=== PATIENT | male | born 1960 | race African-American/Black ===

== ENCOUNTER 2016-09-15 10:22 | Inpatient (IN) | payer MEDICARE, OTHER ==
[2016-09-15] MEDS: LORazepam 2 MG/ML SYRINGE IV PRN (12:51)
--- NOTE | 2016-09-15 12:51 | P.HPIM ---
History of Present Illness H&P Date: 09/15/16 Chief Complaint: Uncontrolled tremors This is a very unfortunate 56-year-old gentleman with past medical history significant for advanced Niagara's disease who is a chronically a resident at [facility] and has been having worsening Mora and tremors over the past several weeks. His is unassigned dose has been increased recently to 25 mg twice a day. Patient also get Klonopin 2 mg every 6 hours scheduled and 1 mg every 8 hours as needed. For the past couple of days he has been having worsening Mora and today when I was in to see him at the detention he appears very uncomfortable. He is also having episodes of diffuse sweating when the intensity of the tremor increase. Most of the time his symptoms is been responsive to Klonopin but yesterday and today patient was very uncomfortable. I decided to admit him directly to the hospital for symptoms control and neurology consultation. Of note, patient is chronically nonverbal. He is also having problems with dysphagia chronically and he had a PEG tube inserted approximately a year ago. Review of Systems Unable to review other systems given his clinical condition Past Medical History Past Medical History: Neurologic Disorder Additional Past Medical History / Comment(s): Huntingtons, Dementia, Dysphagia History of Any Multi-Drug Resistant Organisms: None Reported Past Surgical History: Unable to Obtain Past Anesthesia/Blood Transfusion Reactions: Unable to Obtain Past Psychological History: Unable to Obtain Smoking Status: Unknown if ever smoked Past Alcohol Use History: Unable to Obtain Past Drug Use History: Unable to Obtain Medications and Allergies Home Medications Medication Instructions Recorded Confirmed Type Baclofen [Lioresal] 10 mg PO Q6HR 12/13/15 12/15/15 History Cyanocobalamin [Vitamin B-12 1,000 mcg IM Q30D 12/13/15 12/15/15 History Injection] Polyethylene Glycol 3350 [Miralax] 17 gm PO HS 12/13/15 12/15/15 History Tetrabenazine [Xenazine] 12.5 mg PO BID 12/13/15 12/15/15 History tiZANidine [Zanaflex] 2 mg PO Q6HR 12/13/15 12/15/15 History lamoTRIgine [LaMICtal Odt] 100 mg PO DAILY 12/15/15 12/15/15 History Allergies Allergy/AdvReac Type Severity Reaction Status Date / Time No Known Allergies Allergy Verified 12/15/15 09:38 Physical Exam Vitals: Vital Signs Pulse Resp 09/15/16 12:15 98 20 Intake and Output 09/14/16 09/15/16 09/15/16 22:59 06:59 14:59 Other: Weight 65.45 kg Patient Weight 09/16/16 06:59 Weight 65.45 kg General: The patient is awake and alert, he is nonverbal, he is having episodes of generalized tremor that at times appears severe Eye: extra-ocular movements are intact Cardiovascular: Normal S1-S2, no S3-S4, no murmurs. Respiratory: Lungs clear to auscultation bilaterally with no wheezes rhonchi or rales. Gastrointestinal: Abdomen is soft, nontender, PEG tube in place Neurological: Unable to assess appropriately. Generalized tremor all over his body Skin: Skin is warm and dry Assessment and Plan Plan: 1. 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 Dysphagia/malnutrition status post PEG tube placement 4. Major depressive disorder Patient was directly admitted to the hospital from a detention. I would obtain general blood work and a urinalysis. I would order his outpatient medication for now. IV Ativan as needed for symptomatic relief. I would definitely consider increasing his Xenazine dose gradually. I'll discuss with neurology the benefit of adding a neuroleptic agent such as Zyprexa or risperidone to his regimen for symptomatic relief. I would obtain an EEG to rule out underlying seizure. Outpatient medication include lamotrigine 100 mg twice daily, Xenazide 25 mg twice daily, Effexor 75 mg once a day in the morning, klonopin 2 mg every 8 hours scheduled and 1 mg every 8 hours as needed. At times patient did require Ativan gel.
[2016-09-15 13:26] LABS: Basophils # (A) 0.1 k/uL (0-0.2); Basophils % (A) 1 %; CH 27.6; CHCM 32.1; Eosinophils # (A) 0.3 k/uL (0-0.7); Eosinophils % (A) 3 %; HCT 40.2 % (39.0-53.0); HDW 2.32; Luc # (Auto) 0.23; Luc % (Auto) 3; Lymphocytes # (A) 1.7 k/uL (1.0-4.8); Lymphocytes % (A) 20 %; MCHC 32.4 g/dL (31.0-37.0); MCV 86.3 fL (80.0-100.0); Mean Platelet Volume 7.2; Monocytes # (A) 0.4 k/uL (0-1.0); Monocytes % (A) 5 %; Neutrophils # (A) 5.6 k/uL (1.3-7.7); Neutrophils % (A) 68 %; RBC 4.65 m/uL (4.30-5.90); WBC 8.2 k/uL (3.8-10.6)
[2016-09-15 13:34] LABS: ALT 36 U/L (21-72); AST 37 U/L (17-59); Alkaline Phosphatase 86 U/L (38-126); Anion Gap 9 mmol/L; Blood Urea Nitrogen 24 mg/dL (9-20); Calcium 9.5 mg/dL (8.4-10.2); Carbon Dioxide 28 mmol/L (22-30); Chloride 105 mmol/L (98-107); Glucose 105 mg/dL (74-99); Magnesium 1.9 mg/dL (1.6-2.3); Non-African American GFR(MDRD) >60 (>60 ml/min/1.73 sqM); Potassium 3.9 mmol/L (3.5-5.1); Sodium 142 mmol/L (137-145); Total Bilirubin 0.5 mg/dL (0.2-1.3); Total Protein 7.5 g/dL (6.3-8.2)
[2016-09-15] MEDS ORDERED: NON-FORMULARY DRUG (Lactose-Reduced Food [Ensure Plus] 1 CAN) PEG/G-TUBE PRN (14:46)
[2016-09-15] MEDS ORDERED: MAGNESIUM HYDROXIDE 2,400 MG/10 ML CUP PEG/G-TUBE PRN (14:46)
[2016-09-15] MEDS ORDERED: traMADol 50 MG TAB PEG/G-TUBE PRN (14:46)
[2016-09-15 15:48] LABS: Appearance,Urine Clear (Clear); Bilirubin,Urine Negative (Negative); Glucose,Urine (UA) Negative (Negative); Ketones,Urine Negative (Negative); Leukocyte Esterase,Urine Negative (Negative); Mucus,Urine Rare /hpf; Nitrite,Urine Negative (Negative); PH, Urine 8.5 (5.0-8.0); Particle Count 11449; Protein,Urine 1+ (Negative); Specific Gravity,Urine 1.023 (1.001-1.035); UA Billing (MACRO vs. MICRO) MICRO; WBC,Urine <1 /hpf (0-5)
[2016-09-15] MEDS ORDERED: BACLOFEN 10 MG TAB PO SCH (18:00)
[2016-09-15] MEDS: BACLOFEN 10 MG TAB PEG/G-TUBE SCH ×2 (18:00→22:48)
[2016-09-15] MEDS: clonazePAM 1 MG TAB PEG/G-TUBE SCH ×2 (18:00→22:48)
--- NOTE | 2016-09-15 18:04 | P.CNNES ---
History of Present Illness Consult date: 09/15/16 History of Present Illness: The patient is a 56-year-old man with [place]'s disease. He is a resident of [facility] patient has had a progressive dementia. The patient does not speak and he does have tremors which have gotten worse over the last several weeks. He is on Tetrabenazine for [place]'s Chorea. Required total care and his had a PEG tube for the past year. Attempts have been made to do an EEG as an outpatient but patient could not keep still Review of Systems ROS unobtainable: due to mental status Past Medical History Past Medical History: Musculoskeletal Disorder, Neurologic Disorder, Pneumonia Additional Past Medical History / Comment(s): Huntingtons,, dysphagia, hypoglycemia, electrolyte abnormalities, deconditioned from Karyn's, incontinent urine stool-last BM in past 2 days, severe diaphoresis at times- resolves on its own. History of Any Multi-Drug Resistant Organisms: None Reported Past Surgical History: Unable to Obtain Additional Past Surgical History / Comment(s): 11/2015 Peg tube insertion. Past Anesthesia/Blood Transfusion Reactions: No Reported Reaction Past Psychological History: Depression Additional Psychological History / Comment(s): Pt has hx of major depression, paranoid psychosis. Director Employee Communications states that he had been having crying spells recently and was placed on Effexor which seemed to help. Pt is placed into a feroz chair via arash lift. He used to respond with yes/no but lately nonverbal. He used to eat thick liquids like ice cream but not lately-just tube feedings. He does not read/write anymore. He loves to listen to stories with a headset. Director Employee Communications states MOM no longer works-use miralax and suppositories. Smoking Status: Former smoker Past Alcohol Use History: Unable to Obtain Additional Past Alcohol Use History / Comment(s): Past medical records indicate pt smoked starting at 17 yrs but has not smoked for many years. Past Drug Use History: Unable to Obtain - Past Family History Father History Unknown: Yes Mother History Unknown: Yes Medications and Allergies Home Medications Medication Instructions Recorded Confirmed Type Baclofen [Lioresal] 10 mg PEG/G-TUBE Q6HR 12/13/15 09/15/16 History Cyanocobalamin [Vitamin B-12 1,000 mcg IM Q30D 12/13/15 09/15/16 History Injection] Polyethylene Glycol 3350 [Miralax] 17 gm PEG/G-TUBE HS 12/13/15 09/15/16 History tiZANidine [Zanaflex] 2 mg PEG/G-TUBE Q6HR 12/13/15 09/15/16 History lamoTRIgine [LaMICtal Odt] 100 mg PEG/G-TUBE DAILY 12/15/15 09/15/16 History Acetaminophen [Tylenol] 650 mg PEG/G-TUBE Q6HR PRN 09/15/16 09/15/16 History Ativan Gel 1 applic TOPICAL BID 09/15/16 09/15/16 History Bisacodyl [Dulcolax] 10 mg RECTAL DAILY PRN 09/15/16 09/15/16 History Famotidine [Pepcid] 20 mg PEG/G-TUBE DAILY 09/15/16 09/15/16 History Lactose-Reduced Food [Ensure Plus] 1 can PEG/G-TUBE DAILY PRN 09/15/16 09/15/16 History Magnesium Hydroxide [Milk of 2,400 mg PEG/G-TUBE DAILY PRN 09/15/16 09/15/16 History Magnesia] Na Phos,M-B/Na Phos,Di-Ba [Fleet 1 dose RECTAL DAILY PRN 09/15/16 09/15/16 History Adult] Tetrabenazine [Xenazine] 25 mg PEG/G-TUBE BID 09/15/16 09/15/16 History Venlafaxine HCl ER [Effexor Xr] 75 mg PEG/G-TUBE DAILY 09/15/16 09/15/16 History clonazePAM [KlonoPIN] 2 mg PEG/G-TUBE TID 09/15/16 09/15/16 History risperiDONE [RisperDAL] 0.5 mg PEG/G-TUBE DAILY 09/15/16 09/15/16 History traMADol HCl [Ultram] 50 mg PEG/G-TUBE Q8H PRN 09/15/16 09/15/16 History Allergies Allergy/AdvReac Type Severity Reaction Status Date / Time No Known Allergies Allergy Verified 09/15/16 12:44 Physical Examination - Vital Signs Vital Signs: Vital Signs Temp Pulse Resp BP Pulse Ox 09/15/16 15:00 98.6 F 16 115/60 95 09/15/16 12:15 98 20 Intake and Output 09/15/16 09/15/16 09/15/16 06:59 14:59 22:59 Other: Weight 65.45 kg Patient Weight 09/16/16 06:59 Weight 65.45 kg - Constitutional General appearance: average body habitus - EENT EENT: PERRL - Respiratory Respiratory: lungs clear - Cardiovascular Cardiovascular: regular rate - Neurologic On neurologic examination -mental status: the patient seems to make eye contact but does not respond verbally or follow any directions. 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 He is in advanced stages with dysphagia and dementia. We'll try to obtain an EEG and CT of the brain. He can continue xenazine and we'll check a trough Lamictal level. Psychiatry evaluation may be helpful
[2016-09-16] MEDS: HEPARIN SODIUM,PORCINE 5,000 UNIT/ML 1 ML VIAL SQ SCH ×3 (00:55→23:28)
[2016-09-16] MEDS: LORazepam 2 MG/ML SYRINGE IV PRN ×3 (02:46→20:10)
[2016-09-16 03:02] LABS: Glucose,Whole Blood 107 mg/dL (75-99)
--- NOTE | 2016-09-16 08:11 | CT ---
EXAMINATION TYPE: CT brain wo con DATE OF EXAM: 09/16/2016 7:28 AM COMPARISON: 12/24/2012 HISTORY: 56-year-old male with dementia, behavioral disturbance, [place]'s. TECHNIQUE: Examination was done in axial plane without intravenous contrast. Coronal and sagittal r econstructions performed. CT DLP: 1016.6 mGycm Automated exposure control for dose reduction was used. FINDINGS: There is no evidence of acute intracranial hemorrhage, acute ischemic changes, mass, mass-effect, or extra-axial fluid collection. There is no effacement of cerebral sulci or basal subarachnoid cister ns. There is no hydrocephalus. There is no midline shift. Moreno-white matter distinction is preserv ed. Moderate cerebral cortical volume loss similar to slightly progressed from 2012 Moderate mucosal thickening throughout the ethmoid air cells, increased from 2012. Moderate mucosal t hickening left maxillary sinus. Mastoid air cells well pneumatized. Orbits and globes are intact. IMPRESSION: Moderate cerebral atrophy, similar to slightly progressed from 12/24/2012. No acute intracranial body s een. Moderate chronic paranasal sinus disease, also increased from 2012.
[2016-09-16] MEDS ORDERED: risperiDONE 0.5 MG TAB PEG/G-TUBE SCH (09:00)
[2016-09-16 09:45] LABS: Glucose,Whole Blood 113 mg/dL (75-99)
[2016-09-16] MEDS: FAMOTIDINE 20 MG TAB PEG/G-TUBE SCH (09:55)
[2016-09-16] MEDS: lamoTRIgine 100 MG TAB PEG/G-TUBE SCH (09:55)
[2016-09-16] MEDS: clonazePAM 1 MG TAB PEG/G-TUBE SCH ×3 (09:55→23:28)
[2016-09-16] MEDS: VENLAFAXINE HCL ER 75 MG CAP PO SCH (09:56)
[2016-09-16] MEDS: BACLOFEN 10 MG TAB PEG/G-TUBE SCH ×4 (09:56→23:28)
[2016-09-16] MEDS: PANTOPRAZOLE 40 MG/10 ML VIAL IVP SCH (09:56)
--- NOTE | 2016-09-16 10:51 | CDI ---
In responding to this query, please exercise your independent professional judgment. The [facility] Coding Staff and Clinical Documentation Specialists appreciate your assistance in clarifying documentation, maintaining compliance with coding guidelines, accurately documenting patients condition and capturing severity of illness. The fact that a question is asked does not imply that any particular answer is desired or expected. Communication forms are a method of clarifying documentation and are not made part of the Legal Health Record. Thank you in advance for your clarification. Last Revision, March 2015 Beti Tolentino [address] [place] [address] Documentation Clarification Form Date: 09/16/2016 10:38:00 AM From: Dorene Wagoner RN, CDS Admit Date: 09/15/2016 11:38:00 AM Patient Name: Shaquille Cox V Visit Number: [id number] Dr. 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 Mild Protein-Calorie Malnutrition Moderate Protein-Calorie Malnutrition Severe Protein-Calorie Malnutrition Malnutrition Other condition, please specify Unable to determine Please document in your progress notes and discharge summary in order to capture severity of illness and risk of mortality. Include clinical findings that support your diagnosis. FYI: Press F11 to launch patient chart. Place X here if this finding has no clinical significance, is not applicable or if you are not able to provide any additional documentation. MTDD
[2016-09-16 11:46] LABS: ALT 38 U/L (21-72); AST 36 U/L (17-59); Alkaline Phosphatase 99 U/L (38-126); Anion Gap 13 mmol/L; Blood Urea Nitrogen 26 mg/dL (9-20); Calcium 10.4 mg/dL (8.4-10.2); Carbon Dioxide 26 mmol/L (22-30); Chloride 111 mmol/L (98-107); Glucose 104 mg/dL (74-99); Non-African American GFR(MDRD) >60 (>60 ml/min/1.73 sqM); Potassium 4.2 mmol/L (3.5-5.1); Sodium 150 mmol/L (137-145); Total Bilirubin 0.8 mg/dL (0.2-1.3); Total Protein 8.4 g/dL (6.3-8.2)
[2016-09-16 11:49] LABS: Basophils # (A) 0.1 k/uL (0-0.2); Basophils % (A) 1 %; CH 27.9; CHCM 32.6; Eosinophils # (A) 0.4 k/uL (0-0.7); Eosinophils % (A) 4 %; HDW 2.44; HGB 13.9 gm/dL (13.0-17.5); Luc # (Auto) 0.33; Luc % (Auto) 3; Lymphocytes % (A) 20 %; MCH 27.9 pg (25.0-35.0); MCHC 32.4 g/dL (31.0-37.0); MCV 86.2 fL (80.0-100.0); Mean Platelet Volume 7.1; Monocytes # (A) 0.4 k/uL (0-1.0); Monocytes % (A) 4 %; Neutrophils # (A) 6.9 k/uL (1.3-7.7); Neutrophils % (A) 68 %; RBC 4.99 m/uL (4.30-5.90); RDW 12.6 % (11.5-15.5); WBC 10.2 k/uL (3.8-10.6); WBC (Perox) 10.35
[2016-09-16 12:01] LABS: Glucose,Whole Blood 137 mg/dL (75-99)
--- NOTE | 2016-09-16 13:00 | P.PN ---
Subjective Principal diagnosis: Dunnell's disease Patient is relatively better today compared to yesterday. He continued to have exacerbation of his chorea when stimulated or when someone walks into his room. Unfortunately he did not get his Xenazine dose as it is not on formulary in this hospital. Objective - Vital Signs Vital signs: Vital Signs Temp 97.7 F 09/15/16 21:38 Pulse 98 09/16/16 08:00 Resp 16 09/16/16 08:00 BP 111/68 09/15/16 21:38 Pulse Ox 98 09/15/16 21:38 Intake & Output 09/15/16 09/16/16 09/16/16 18:59 06:59 18:59 Weight 65.45 kg - Exam General: The patient is awake and alert, he is having intermittent generalized tremor and chorea Eye: there is normal conjunctiva bilaterally. Neck: The neck is supple, there is no JVD. Cardiovascular: Normal S1-S2, no S3-S4, no murmurs. Respiratory: Lungs clear to auscultation bilaterally Gastrointestinal: Abdomen is soft, nontender Musculoskeletal: There is no pedal edema. Neurological:. Speech is normal. Skin: Skin is warm and dry - Labs CBC & Chem 7: 09/16/16 11:05 09/16/16 11:05 Labs: Abnormal Lab Results - Last 24 Hours (Table) 09/15/16 09/15/16 09/16/16 Range/Units 12:59 14:30 02:41 Sodium (137-145) mmol/L Chloride (98-107) mmol/L BUN 24 H (9-20) mg/dL Glucose 105 H (74-99) mg/dL POC Glucose (mg/dL) 107 H (75-99) mg/dL Calcium (8.4-10.2) mg/dL Total Protein (6.3-8.2) g/dL Urine pH 8.5 H (5.0-8.0) Urine Protein 1+ H (Negative) Urine Mucus Rare H (None) /hpf 09/16/16 09/16/16 09/16/16 Range/Units 09:42 11:05 11:55 Sodium 150 H (137-145) mmol/L Chloride 111 H (98-107) mmol/L BUN 26 H (9-20) mg/dL Glucose 104 H (74-99) mg/dL POC Glucose (mg/dL) 113 H 137 H (75-99) mg/dL Calcium 10.4 H (8.4-10.2) mg/dL Total Protein 8.4 H (6.3-8.2) g/dL Urine pH (5.0-8.0) Urine Protein (Negative) Urine Mucus (None) /hpf Assessment and Plan Plan: 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 Dysphagia/malnutrition status post PEG tube placement 4. Major depressive disorder 5. Moderate to severe malnutrition 6. Hypovolemic hypernatremia: I would start gentle IV fluid hydration with D5/ half-normal saline at 50 mL per hour and repeat lab work in the morning Patient was seen and evaluated by neurology. they recommended psychiatry consultation. Computed tomography scan of the brain showed moderate cerebral atrophy with no acute intracranial process. EEG ordered. Urinalysis was unremarkable. Patient symptoms improved with the use of IV Ativan. I would increase Xenazine dose to 25 mg 3 times a day. I would also increase his risperidone dose to 0.5 mg twice daily and monitor his QT interval closely.
--- NOTE | 2016-09-16 14:30 | P.CN ---
Psychiatric Consult - . Consult date: 09/16/16 Consult:: 09/16/16 13:48 DATE OF SERVICE: 09/16/2016 IDENTIFYING DATA: This patient is a 56-year-old -Cam[place][]. HISTORY OF PRESENT ILLNESS: The patient presents with with Clall[place]'s disease. He is a resident of [facility] and has by report progressive dementia. Consult to psychiatry for AMS. Patient was lying in his bed, with 1:1 sitter. Patient is nonverbal, poor eye contact, unable to communicate with patient. Patient has significant tremors that have responded to clonazepam in the past but according to the recent admission there was a poor response. Patient is also diagnosed with major depressive disorder paranoid psychosis and dementia. Review of chart shows patient has been nonverbal for some time. Foxer has noted crying spells recently and was placed on Effexor. According to neurology consult that patient used to answer with yes no. PAST PSYCHIATRIC HISTORY: Unknown. PAST MEDICAL HISTORY: As above. ALLERGIES: [No known drug allergies]. CHEMICAL DEPENDENCY HISTORY: Unknown. FAMILY PSYCHIATRIC HISTORY: Unknown. SOCIAL HISTORY: Lives in a fci. MENTAL STATUS EXAM: Unable to examine due to nonverbal status. IMPRESSIONS: Pt with Hunting's disease, dementia, psychosis and depression all typically comorbid. Unable to determine if pt is psychotic or depressed. Unable to complete a MSE or psychiatric interview due to the nonverbal status. PLAN: Would consider using quetiapine (seroquel) in place of risperidone as it can be used for both psychosis and depression, although at higher doses. Low dose of 25mg TID and could titrate up if postive response. 09/16/16 14:25
[2016-09-16] MEDS: DEXTROSE 5%-0.45% NACL 1,000 ML IV SCH (15:20)
[2016-09-16] MEDS ORDERED: VALPROATE SODIUM 1,000 MG in SODIUM CHLORIDE 0.9% 50 ML IVPB ONE (16:51)
[2016-09-16 17:05] LABS: Glucose,Whole Blood 119 mg/dL (75-99)
[2016-09-16 20:31] LABS: Glucose,Whole Blood 111 mg/dL (75-99)
--- NOTE | 2016-09-16 21:01 | XR ---
EXAMINATION TYPE: XR chest 1V portable DATE OF EXAM: 09/16/2016 8:16 PM CLINICAL HISTORY: Shortness of breath. TECHNIQUE: Single AP portable frontal upright view of the chest is obtained. COMPARISON: Chest x-ray August 14, 2012. FINDINGS: There is some chronic parenchymal change without suspicious focal air space opacity, pleur al effusion, or pneumothorax seen. The cardiac silhouette size is within normal limits. The osseou s structures are intact. IMPRESSION: No acute pulmonary process.
[2016-09-16] MEDS: risperiDONE 0.5 MG TAB PEG/G-TUBE SCH (23:28)
[2016-09-16] MEDS: TETRABENAZINE 25 MG PO SCH (23:28)
[2016-09-17] MEDS: TETRABENAZINE 25 MG PEG/G-TUBE SCH ×2 (00:15→02:38)
[2016-09-17] MEDS: VALPROATE SODIUM 500 MG in SODIUM CHLORIDE 0.9% 50 ML IVPB SCH ×4 (01:44→19:53)
[2016-09-17 06:05] LABS: Glucose,Whole Blood 115 mg/dL (75-99)
[2016-09-17 08:26] LABS: Basophils # (A) 0.1 k/uL (0-0.2); Basophils % (A) 1 %; CH 27.3; CHCM 31.4; Eosinophils # (A) 0.3 k/uL (0-0.7); Eosinophils % (A) 2 %; HCT 42.7 % (39.0-53.0); HDW 2.33; HGB 13.4 gm/dL (13.0-17.5); Hypochromasia Slight; Luc # (Auto) 0.39; Luc % (Auto) 3; Lymphocytes # (A) 2.2 k/uL (1.0-4.8); Lymphocytes % (A) 18 %; MCH 27.4 pg (25.0-35.0); MCHC 31.3 g/dL (31.0-37.0); MCV 87.6 fL (80.0-100.0); Monocytes # (A) 0.6 k/uL (0-1.0); Monocytes % (A) 5 %; Neutrophils # (A) 8.3 k/uL (1.3-7.7); Neutrophils % (A) 71 %; RBC 4.87 m/uL (4.30-5.90); WBC 11.7 k/uL (3.8-10.6); WBC (Perox) 11.91
[2016-09-17] MEDS: FAMOTIDINE 20 MG TAB PEG/G-TUBE SCH (08:26)
[2016-09-17] MEDS: lamoTRIgine 100 MG TAB PEG/G-TUBE SCH (08:26)
[2016-09-17] MEDS: TETRABENAZINE 25 MG PO SCH ×3 (08:26→23:23)
[2016-09-17] MEDS: risperiDONE 0.5 MG TAB PEG/G-TUBE SCH (08:26)
[2016-09-17] MEDS: VENLAFAXINE HCL ER 75 MG CAP PO SCH (08:26)
[2016-09-17] MEDS: BACLOFEN 10 MG TAB PEG/G-TUBE SCH ×4 (08:27→23:20)
[2016-09-17] MEDS: PANTOPRAZOLE 40 MG/10 ML VIAL IVP SCH (08:27)
[2016-09-17] MEDS: HEPARIN SODIUM,PORCINE 5,000 UNIT/ML 1 ML VIAL SQ SCH ×2 (08:27→23:20)
[2016-09-17] MEDS: DEXTROSE 5%-0.45% NACL 1,000 ML IV SCH (08:29)
[2016-09-17 08:44] LABS: ALT 34 U/L (21-72); AST 41 U/L (17-59); Alkaline Phosphatase 86 U/L (38-126); Anion Gap 10 mmol/L; Blood Urea Nitrogen 34 mg/dL (9-20); Calcium 9.8 mg/dL (8.4-10.2); Carbon Dioxide 30 mmol/L (22-30); Chloride 114 mmol/L (98-107); Glucose 129 mg/dL (74-99); Non-African American GFR(MDRD) >60 (>60 ml/min/1.73 sqM); Potassium 4.3 mmol/L (3.5-5.1); Sodium 154 mmol/L (137-145); Total Bilirubin 0.7 mg/dL (0.2-1.3)
[2016-09-17] MEDS: clonazePAM 1 MG TAB PEG/G-TUBE SCH ×3 (08:50→23:23)
--- NOTE | 2016-09-17 10:34 | EEG ---
DATE OF SERVICE: 09/16/2016 INDICATIONS FOR EXAMINATION: This patient is a 56 -year-old male with known history of [place]'s disease. The patient now being evaluated for tremors and altered mental status. AGE: 56Y EEG FINDINGS: A routine 21 channel awake digital EEG recording was accomplished utilizing the 10-20 international system with bipolar and referential montages. The background activity in the most alert resting state consists of a low to medium amplitude, low to medium amplitude, poorly developed and poorly sustained 6 Hz activity over the posterior head regions. This posterior rhythm attenuates minimally to eye opening. There is a small amount of low amplitude 18-20 Hz beta activity seen maximally over the anterior head regions. Muscle and movement artifact was observed on several occasions during the tracing. Hyperventilation was not performed. Photic stimulation at flash frequencies of 2-30 Hz produced a minimal occipital driving response. The main feature of this tracing is the frequent occurrence of generalized spike and sharp wave discharges occurring intermittently throughout the entire tracing. These intervals occur in one to two second ( ). No motor associated findings were reported. IMPRESSION: This EEG is markedly abnormal due to the occurrence of generalized spike and sharp wave discharges throughout the EEG tracing. This finding is consistent with underlying seizure disorder of deep level origin. Clinical correlation is recommended.
[2016-09-17] MEDS ORDERED: ALBUTEROL NEB (CONC) 2.5 MG/0.5 ML INHALATION PRN (11:37)
--- NOTE | 2016-09-17 11:37 | P.CNPUL ---
History of Present Illness Consult date: 09/17/16 Requesting physician: Natalio Link Reason for consult: dyspnea Chief complaint: Shortness of breath History of present illness: This is a 56-year-old gentleman who follows with Dr. Link as his primary care physician. The patient does reside at [facility] secondary to Rodrigo's disease, dementia and dysphagia. The patient is nonverbal. He has a PEG tube in place for nutrition. On 09/15/2016 at the [facility] the patient had uncontrolled tremors and was sent here for the same. His tetrabenazine dose had recently been increased to 25 mg twice a day. He also usually responds to Klonopin however this time there is no adequate response. Last evening the patient had developed what appeared to be shortness of breath and we are consulted for the same. His chest x-ray revealed no acute pulmonary process. Prior to that he had been maintaining good O2 saturations in the upper 90s on room air. He is currently on 2 L/m per nasal cannula with O2 saturations in the high 90s. No noted coughing or congestion. Minimal leukocytosis at 11.7. He's been afebrile. Sodium has gradually increased currently at 154. Review of Systems ROS unobtainable: due to mental status Past Medical History Past Medical History: Musculoskeletal Disorder, Neurologic Disorder, Pneumonia Additional Past Medical History / Comment(s): [place],, dysphagia, hypoglycemia, electrolyte abnormalities, deconditioned from Rodrigo's, incontinent urine stool-last BM in past 2 days, severe diaphoresis at times- resolves on its own. History of Any Multi-Drug Resistant Organisms: None Reported Past Surgical History: Unable to Obtain Additional Past Surgical History / Comment(s): 11/2015 Peg tube insertion. Past Anesthesia/Blood Transfusion Reactions: No Reported Reaction Past Psychological History: Depression Additional Psychological History / Comment(s): Pt has hx of major depression, paranoid psychosis. Senior Market Intelligence Consultant states that he had been having crying spells recently and was placed on Effexor which seemed to help. Pt is placed into a feroz chair via arash lift. He used to respond with yes/no but lately nonverbal. He used to eat thick liquids like ice cream but not lately-just tube feedings. He does not read/write anymore. He loves to listen to stories with a headset. Senior Market Intelligence Consultant states MOM no longer works-use miralax and suppositories. Smoking Status: Former smoker Past Alcohol Use History: Unable to Obtain Additional Past Alcohol Use History / Comment(s): Past medical records indicate pt smoked starting at 17 yrs but has not smoked for many years. Past Drug Use History: Unable to Obtain - Past Family History Father History Unknown: Yes Mother History Unknown: Yes Medications and Allergies Home Medications Medication Instructions Recorded Confirmed Type Baclofen [Lioresal] 10 mg PEG/G-TUBE Q6HR 12/13/15 09/15/16 History Cyanocobalamin [Vitamin B-12 1,000 mcg IM Q30D 12/13/15 09/15/16 History Injection] Polyethylene Glycol 3350 [Miralax] 17 gm PEG/G-TUBE HS 12/13/15 09/15/16 History tiZANidine [Zanaflex] 2 mg PEG/G-TUBE Q6HR 12/13/15 09/15/16 History lamoTRIgine [LaMICtal Odt] 100 mg PEG/G-TUBE DAILY 12/15/15 09/15/16 History Acetaminophen [Tylenol] 650 mg PEG/G-TUBE Q6HR PRN 09/15/16 09/15/16 History Ativan Gel 1 applic TOPICAL BID 09/15/16 09/15/16 History Bisacodyl [Dulcolax] 10 mg RECTAL DAILY PRN 09/15/16 09/15/16 History Famotidine [Pepcid] 20 mg PEG/G-TUBE DAILY 09/15/16 09/15/16 History Lactose-Reduced Food [Ensure Plus] 1 can PEG/G-TUBE DAILY PRN 09/15/16 09/15/16 History Magnesium Hydroxide [Milk of 2,400 mg PEG/G-TUBE DAILY PRN 09/15/16 09/15/16 History Magnesia] Na Phos,M-B/Na Phos,Di-Ba [Fleet 1 dose RECTAL DAILY PRN 09/15/16 09/15/16 History Adult] Tetrabenazine [Xenazine] 25 mg PEG/G-TUBE BID 09/15/16 09/15/16 History Venlafaxine HCl ER [Effexor Xr] 75 mg PEG/G-TUBE DAILY 09/15/16 09/15/16 History clonazePAM [KlonoPIN] 2 mg PEG/G-TUBE TID 09/15/16 09/15/16 History risperiDONE [RisperDAL] 0.5 mg PEG/G-TUBE DAILY 09/15/16 09/15/16 History traMADol HCl [Ultram] 50 mg PEG/G-TUBE Q8H PRN 09/15/16 09/15/16 History Allergies Allergy/AdvReac Type Severity Reaction Status Date / Time No Known Allergies Allergy Verified 09/15/16 12:44 Physical Exam Vitals: Vital Signs Temp Pulse Pulse Resp BP Pulse Ox 09/17/16 07:00 97.6 F 82 18 139/72 99 09/16/16 23:30 99 09/16/16 20:00 98.9 F 113 H 20 122/75 100 09/16/16 16:00 98 122 H 20 09/16/16 14:36 96.3 F L 122 H 20 98/66 Intake and Output 09/16/16 09/17/16 09/17/16 22:59 06:59 14:59 Intake Total 890 Balance 890 Intake: IV 500 Dextrose 5%-0.45% NaCl 1, 450 000 ml @ 50 mls/hr IV . Q20H CHARLIE Rx#:[id number] Valproate Sodium 500 mg 50 In Sodium Chloride 0.9% 50 ml @ 50 mls/hr IVPB Q6HR CHARLIE Rx#:[id number] Tube Feeding 390 Other: Voiding Method Diaper Incontinent # Voids 3 2 # Bowel Movements 1 Weight 68 kg GENERAL EXAM: Alert, active, comfortable in no apparent distress. HEAD: Normocephalic. EYES: Normal reaction of pupils, equal size. NOSE: Clear with pink turbinates. THROAT: No erythema or exudates. NECK: No masses, no JVD. CHEST: No chest wall deformity. LUNGS: Equal air entry with no crackles, wheeze, rhonchi or dullness. CVS: S1 and S2 normal with no audible murmurs, regular rhythm. ABDOMEN: PEG tube exit site clean and dry. Soft, bowel sounds present. Extremities: There is no peripheral edema. No clubbing. Peripheral pulses are intact. Results - Laboratory Findings CBC and BMP: 09/17/16 08:00 09/17/16 08:00 Abnormal lab findings: Abnormal Labs 09/15/16 09/15/16 09/16/16 12:59 14:30 02:41 WBC Neutrophils # Sodium Chloride BUN 24 H Glucose 105 H POC Glucose (mg/dL) 107 H Calcium Total Protein Urine pH 8.5 H Urine Protein 1+ H Urine Mucus Rare H 09/16/16 09/16/16 09/16/16 09:42 11:05 11:55 WBC Neutrophils # Sodium 150 H Chloride 111 H BUN 26 H Glucose 104 H POC Glucose (mg/dL) 113 H 137 H Calcium 10.4 H Total Protein 8.4 H Urine pH Urine Protein Urine Mucus 09/16/16 09/16/16 09/17/16 16:56 20:29 06:02 WBC Neutrophils # Sodium Chloride BUN Glucose POC Glucose (mg/dL) 119 H 111 H 115 H Calcium Total Protein Urine pH Urine Protein Urine Mucus 09/17/16 09/17/16 08:00 08:00 WBC 11.7 H Neutrophils # 8.3 H Sodium 154 H Chloride 114 H BUN 34 H Glucose 129 H POC Glucose (mg/dL) Calcium Total Protein Urine pH Urine Protein Urine Mucus - Diagnostic Findings Chest x-ray: image reviewed (No acute pulmonary process) Assessment and Plan Plan: Impression: #1 Rodrigo's disease with uncontrolled tremors despite having tetrabenazine increased and Klonopin. #2 Dyspnea of unclear etiology. Chest x-ray shows no evidence of aspiration. Had been maintaining good O2 saturations in the 90s on room air. Currently at 100% on 2 L. He's been afebrile. Slightly tachycardic, no tachypnea. #3 Dysphagia status post PEG tube insertion. #4 Dementia. #5 senior care resident. Plan: The patient was seen and evaluated by Dr. Adler. His chest x-ray and labs were reviewed. We will initiate albuterol to be used as needed should the patient show any recurring signs of shortness of breath. He remains on heparin for DVT prophylaxis. Protonix for GI prophylaxis. Psychiatric services have made recommendations as well. Computed tomography scan of the brain did show moderate cerebral atrophy slightly progressed compared to 2013 but no acute intracranial abnormalities. We will continue to follow make further recommendations based on his clinical status. He should remain on aspiration precautions. The patient is a DO NOT RESUSCITATE/DO NOT INTUBATE CODE STATUS. Time with Patient: Greater than 30
[2016-09-17 11:50] LABS: Glucose,Whole Blood 113 mg/dL (75-99)
--- NOTE | 2016-09-17 12:21 | P.PN ---
Subjective Patient's overall condition appeared better today. He is more calm and is having less frequent jerking and tremors. He was noted to be hypoxic last night and chest x-ray showed no acute findings. He was started on bronchodilators with nebulized albuterol and oxygen level picked up. Objective - Vital Signs Vital signs: Vital Signs Temp 97.6 F 09/17/16 07:00 Pulse 82 09/17/16 07:00 Resp 18 09/17/16 07:00 BP 139/72 09/17/16 07:00 Pulse Ox 99 09/17/16 07:00 Intake & Output 09/16/16 09/17/16 09/17/16 18:59 06:59 18:59 Intake Total 890 200 Balance 890 200 Weight 64.1 kg 68 kg Intake: IV 500 Dextrose 5%-0.45% NaCl 1, 450 000 ml @ 50 mls/hr IV . Q20H CHARLIE Rx#:[id number] Valproate Sodium 500 mg 50 In Sodium Chloride 0.9% 50 ml @ 50 mls/hr IVPB Q6HR CHARLIE Rx#:[id number] Tube Feeding 390 200 Other: Voiding Method Diaper Diaper Incontinent Incontinent # Voids 3 2 # Bowel Movements 1 - Exam General: The patient is awake and alert, he is having intermittent generalized tremor and chorea Eye: there is normal conjunctiva bilaterally. Neck: The neck is supple, there is no JVD. Cardiovascular: Normal S1-S2, no S3-S4, no murmurs. Respiratory: Lungs clear to anterior auscultation bilaterally Gastrointestinal: Abdomen is soft, nontender. PEG tube in place Musculoskeletal: There is no pedal edema. Skin: Skin is warm and dry - Labs CBC & Chem 7: 09/17/16 08:00 09/17/16 08:00 Labs: Abnormal Lab Results - Last 24 Hours (Table) 09/16/16 09/16/16 09/17/16 Range/Units 16:56 20:29 06:02 WBC (3.8-10.6) k/uL Neutrophils # (1.3-7.7) k/uL Sodium (137-145) mmol/L Chloride (98-107) mmol/L BUN (9-20) mg/dL Glucose (74-99) mg/dL POC Glucose (mg/dL) 119 H 111 H 115 H (75-99) mg/dL 09/17/16 09/17/16 09/17/16 Range/Units 08:00 08:00 11:49 WBC 11.7 H (3.8-10.6) k/uL Neutrophils # 8.3 H (1.3-7.7) k/uL Sodium 154 H (137-145) mmol/L Chloride 114 H (98-107) mmol/L BUN 34 H (9-20) mg/dL Glucose 129 H (74-99) mg/dL POC Glucose (mg/dL) 113 H (75-99) mg/dL Assessment and Plan Plan: 1. [place]'s disease 2. 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 Dysphagia/malnutrition status post PEG tube placement. PEG tube appears slightly dislodged. Surgery consulted for further evaluation 4. Major depressive disorder: Seen and evaluated by psychiatry 5. Moderate to severe malnutrition 6. Hypovolemic hypernatremia: Continue IV fluid hydration. Switch fluids to D5 water. Repeat lab work in the morning. Patient was seen and evaluated by neurology. Computed tomography scan of the brain showed moderate cerebral atrophy with no acute intracranial process. Urinalysis was unremarkable. EEG reading consistent with underlying seizure disorder. Patient was also seen by psychiatry. Plan to wean off risperidone and change her dose to 0.5 once a day for a couple of days then discontinue. I would start quetiapine 25 mg 3 times a day thereafter and monitor closely. Patient started on IV Depakote by neurology. Lamictal level pending. Xenazine dose increased to 25 mg 3 times a day.
[2016-09-17] MEDS: DEXTROSE 5% IN WATER 1,000 ML IV SCH (12:34)
[2016-09-17 17:48] LABS: Glucose,Whole Blood 143 mg/dL (75-99)
--- NOTE | 2016-09-17 17:50 | P.GSCN ---
History of Present Illness Consult date: 09/17/16 Reason for Consult: Malfunctioning PEG tube History of present illness: During this patient's hospitalization and was noted on 2 separate occasions for the indwelling PEG tube to have poor function. Apparently there was some resistance to flow through the catheter. For that reason we're asked to see the patient. Per the nursing staff this morning the catheter was flushed with cola And since that time has worked well. The patient is unable to provide any history so the history is instead obtained from the patient's chart. Review of Systems ROS unobtainable: due to mental status Past Medical History Past Medical History: Musculoskeletal Disorder, Neurologic Disorder, Pneumonia Additional Past Medical History / Comment(s): [place],, dysphagia, hypoglycemia, electrolyte abnormalities, deconditioned from [place]'s, incontinent urine stool-last BM in past 2 days, severe diaphoresis at times- resolves on its own. History of Any Multi-Drug Resistant Organisms: None Reported Past Surgical History: Unable to Obtain Additional Past Surgical History / Comment(s): 11/2015 Peg tube insertion. Past Anesthesia/Blood Transfusion Reactions: No Reported Reaction Past Psychological History: Depression Additional Psychological History / Comment(s): Pt has hx of major depression, paranoid psychosis. Leather Craftsman states that he had been having crying spells recently and was placed on Effexor which seemed to help. Pt is placed into a feroz chair via arash lift. He used to respond with yes/no but lately nonverbal. He used to eat thick liquids like ice cream but not lately-just tube feedings. He does not read/write anymore. He loves to listen to stories with a headset. Leather Craftsman states MOM no longer works-use miralax and suppositories. Smoking Status: Former smoker Past Alcohol Use History: Unable to Obtain Additional Past Alcohol Use History / Comment(s): Past medical records indicate pt smoked starting at 17 yrs but has not smoked for many years. Past Drug Use History: Unable to Obtain - Past Family History Father History Unknown: Yes Mother History Unknown: Yes Medications and Allergies Home Medications Medication Instructions Recorded Confirmed Type Baclofen [Lioresal] 10 mg PEG/G-TUBE Q6HR 12/13/15 09/15/16 History Cyanocobalamin [Vitamin B-12 1,000 mcg IM Q30D 12/13/15 09/15/16 History Injection] Polyethylene Glycol 3350 [Miralax] 17 gm PEG/G-TUBE HS 12/13/15 09/15/16 History tiZANidine [Zanaflex] 2 mg PEG/G-TUBE Q6HR 12/13/15 09/15/16 History lamoTRIgine [LaMICtal Odt] 100 mg PEG/G-TUBE DAILY 12/15/15 09/15/16 History Acetaminophen [Tylenol] 650 mg PEG/G-TUBE Q6HR PRN 09/15/16 09/15/16 History Ativan Gel 1 applic TOPICAL BID 09/15/16 09/15/16 History Bisacodyl [Dulcolax] 10 mg RECTAL DAILY PRN 09/15/16 09/15/16 History Famotidine [Pepcid] 20 mg PEG/G-TUBE DAILY 09/15/16 09/15/16 History Lactose-Reduced Food [Ensure Plus] 1 can PEG/G-TUBE DAILY PRN 09/15/16 09/15/16 History Magnesium Hydroxide [Milk of 2,400 mg PEG/G-TUBE DAILY PRN 09/15/16 09/15/16 History Magnesia] Na Phos,M-B/Na Phos,Di-Ba [Fleet 1 dose RECTAL DAILY PRN 09/15/16 09/15/16 History Adult] Tetrabenazine [Xenazine] 25 mg PEG/G-TUBE BID 09/15/16 09/15/16 History Venlafaxine HCl ER [Effexor Xr] 75 mg PEG/G-TUBE DAILY 09/15/16 09/15/16 History clonazePAM [KlonoPIN] 2 mg PEG/G-TUBE TID 09/15/16 09/15/16 History risperiDONE [RisperDAL] 0.5 mg PEG/G-TUBE DAILY 09/15/16 09/15/16 History traMADol HCl [Ultram] 50 mg PEG/G-TUBE Q8H PRN 09/15/16 09/15/16 History Allergies Allergy/AdvReac Type Severity Reaction Status Date / Time No Known Allergies Allergy Verified 09/15/16 12:44 Surgical - Exam Vital Signs Pulse Resp 98 20 09/15/16 12:15 09/15/16 12:15 Physical exam: General: Well-developed, slightly malnourished HEENT: Normocephalic, sclerae nonicteric Abdomen: Nontender, nondistended, left upper quadrant feeding tube noted, some granulation tissue, nontender Extremities: No edema Neuro: Nonverbal, contracted Results - Labs 09/17/16 08:00 09/17/16 08:00 Abnormal Lab Results - Last 24 Hours (Table) 09/16/16 09/17/16 09/17/16 Range/Units 20:29 06:02 08:00 WBC 11.7 H (3.8-10.6) k/uL Neutrophils # 8.3 H (1.3-7.7) k/uL Sodium (137-145) mmol/L Chloride (98-107) mmol/L BUN (9-20) mg/dL Glucose (74-99) mg/dL POC Glucose (mg/dL) 111 H 115 H (75-99) mg/dL 09/17/16 09/17/16 Range/Units 08:00 11:49 WBC (3.8-10.6) k/uL Neutrophils # (1.3-7.7) k/uL Sodium 154 H (137-145) mmol/L Chloride 114 H (98-107) mmol/L BUN 34 H (9-20) mg/dL Glucose 129 H (74-99) mg/dL POC Glucose (mg/dL) 113 H (75-99) mg/dL Diabetes panel 09/17/16 Range/Units 08:00 Sodium 154 H (137-145) mmol/L Potassium 4.3 (3.5-5.1) mmol/L Chloride 114 H (98-107) mmol/L Carbon Dioxide 30 (22-30) mmol/L BUN 34 H (9-20) mg/dL Creatinine 1.09 (0.66-1.25) mg/dL Glucose 129 H (74-99) mg/dL Calcium 9.8 (8.4-10.2) mg/dL AST 41 (17-59) U/L ALT 34 (21-72) U/L Alkaline Phosphatase 86 (38-126) U/L Total Protein 8.0 (6.3-8.2) g/dL Albumin 4.4 (3.5-5.0) g/dL Calcium panel 09/17/16 Range/Units 08:00 Calcium 9.8 (8.4-10.2) mg/dL Albumin 4.4 (3.5-5.0) g/dL Pituitary panel 09/17/16 Range/Units 08:00 Sodium 154 H (137-145) mmol/L Potassium 4.3 (3.5-5.1) mmol/L Chloride 114 H (98-107) mmol/L Carbon Dioxide 30 (22-30) mmol/L BUN 34 H (9-20) mg/dL Creatinine 1.09 (0.66-1.25) mg/dL Glucose 129 H (74-99) mg/dL Calcium 9.8 (8.4-10.2) mg/dL Adrenal panel 09/17/16 Range/Units 08:00 Sodium 154 H (137-145) mmol/L Potassium 4.3 (3.5-5.1) mmol/L Chloride 114 H (98-107) mmol/L Carbon Dioxide 30 (22-30) mmol/L BUN 34 H (9-20) mg/dL Creatinine 1.09 (0.66-1.25) mg/dL Glucose 129 H (74-99) mg/dL Calcium 9.8 (8.4-10.2) mg/dL Total Bilirubin 0.7 (0.2-1.3) mg/dL AST 41 (17-59) U/L ALT 34 (21-72) U/L Alkaline Phosphatase 86 (38-126) U/L Total Protein 8.0 (6.3-8.2) g/dL Albumin 4.4 (3.5-5.0) g/dL Assessment and Plan (1) PEG tube malfunction Narrative/Plan: Currently the patient's tube was functioning appropriately. Would consider elective outpatient gastrostomy replacement. We'll sign off at this point. Please contact if needed. Status: Acute
--- NOTE | 2016-09-17 20:01 | P.PN ---
Subjective Principal diagnosis: [place]'s disease The patient is a 56-year-old man with advanced [place]'s disease. He was admitted to the hospital with worsening of tremors. The patient has been on Lamictal and his Lamictal level was therapeutic at 2.8. He had an EEG which revealed some sharp waves. Depakote was added to his regimen for seizure control. The patient is nonverbal. Does not make much eye contact. Does not follow commands. Objective - Vital Signs Vital signs: Vital Signs Temp 98 F 09/17/16 15:00 Pulse 81 09/17/16 15:00 Resp 16 09/17/16 16:00 BP 110/66 09/17/16 15:00 Pulse Ox 100 09/17/16 15:00 Intake & Output 09/17/16 09/17/16 09/18/16 06:59 18:59 06:59 Intake Total 890 600 Balance 890 600 Weight 68 kg 68 kg Intake: IV 500 Dextrose 5%-0.45% NaCl 1, 450 000 ml @ 50 mls/hr IV . Q20H CHARLIE Rx#:[id number] Valproate Sodium 500 mg 50 In Sodium Chloride 0.9% 50 ml @ 50 mls/hr IVPB Q6HR CHARLIE Rx#:[id number] Tube Feeding 390 600 Other: Voiding Method Diaper Diaper Incontinent Incontinent # Voids 2 - Constitutional General appearance: Present: average body habitus - Cardiovascular Heart sounds: normal: S1, S2 - Neurologic Neurologic Comment(s): On neurologic examination mental status he was awake he did not stay focused and or make eye contact. He did not follow any commands. On verbal. Next Cranial nerve examination there was no obvious facial asymmetry next her graft motor examination he has diffuse rigidity and cordiform movements Coordination and gait could not be checked. - Labs CBC & Chem 7: 09/17/16 08:00 09/17/16 08:00 Labs: Abnormal Lab Results - Last 24 Hours (Table) 09/16/16 09/17/16 09/17/16 Range/Units 20:29 06:02 08:00 WBC 11.7 H (3.8-10.6) k/uL Neutrophils # 8.3 H (1.3-7.7) k/uL Sodium (137-145) mmol/L Chloride (98-107) mmol/L BUN (9-20) mg/dL Glucose (74-99) mg/dL POC Glucose (mg/dL) 111 H 115 H (75-99) mg/dL 09/17/16 09/17/16 09/17/16 Range/Units 08:00 11:49 17:46 WBC (3.8-10.6) k/uL Neutrophils # (1.3-7.7) k/uL Sodium 154 H (137-145) mmol/L Chloride 114 H (98-107) mmol/L BUN 34 H (9-20) mg/dL Glucose 129 H (74-99) mg/dL POC Glucose (mg/dL) 113 H 143 H (75-99) mg/dL Assessment and Plan (1) [place]'s disease Status: Chronic Code(s): G10 - RODRIGO'S DISEASE (2) 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 He also has underlying seizure disorder. His EEG revealed some sharp waves and Depakote was added to Lamictal. His Lamictal level is therapeutic at 2.8. We'll check trough Depakote level in a.m.
[2016-09-18 00:12] LABS: Glucose,Whole Blood 113 mg/dL (75-99)
[2016-09-18] MEDS: VALPROATE SODIUM 500 MG in SODIUM CHLORIDE 0.9% 50 ML IVPB SCH ×3 (01:33→09:19)
[2016-09-18] MEDS: BACLOFEN 10 MG TAB PEG/G-TUBE SCH ×4 (05:18→23:54)
[2016-09-18 06:11] LABS: Glucose,Whole Blood 130 mg/dL (75-99)
[2016-09-18 08:15] LABS: Basophils # (A) 0.1 k/uL (0-0.2); Basophils % (A) 1 %; CH 27.5; CHCM 31.5; Eosinophils # (A) 0.3 k/uL (0-0.7); Eosinophils % (A) 5 %; HCT 40.2 % (39.0-53.0); HDW 2.37; HGB 12.7 gm/dL (13.0-17.5); Luc % (Auto) 3; Lymphocytes # (A) 1.8 k/uL (1.0-4.8); Lymphocytes % (A) 30 %; MCH 27.7 pg (25.0-35.0); MCHC 31.6 g/dL (31.0-37.0); MCV 87.7 fL (80.0-100.0); Mean Platelet Volume 7.2; Monocytes # (A) 0.3 k/uL (0-1.0); Monocytes % (A) 4 %; Neutrophils # (A) 3.4 k/uL (1.3-7.7); Neutrophils % (A) 57 %; RBC 4.58 m/uL (4.30-5.90); RDW 12.9 % (11.5-15.5); WBC (Perox) 6.11
[2016-09-18 08:33] LABS: ALT 28 U/L (21-72); AST 32 U/L (17-59); Alkaline Phosphatase 80 U/L (38-126); Anion Gap 9 mmol/L; Blood Urea Nitrogen 28 mg/dL (9-20); Calcium 9.3 mg/dL (8.4-10.2); Carbon Dioxide 32 mmol/L (22-30); Chloride 109 mmol/L (98-107); Glucose 115 mg/dL (74-99); Non-African American GFR(MDRD) >60 (>60 ml/min/1.73 sqM); Sodium 150 mmol/L (137-145); Total Bilirubin 0.6 mg/dL (0.2-1.3); Total Protein 7.4 g/dL (6.3-8.2)
[2016-09-18] MEDS ORDERED: risperiDONE 0.5 MG TAB PEG/G-TUBE SCH (09:00)
[2016-09-18] MEDS: TETRABENAZINE 25 MG PO SCH ×3 (09:18→21:08)
[2016-09-18] MEDS: VENLAFAXINE HCL ER 75 MG CAP PO SCH (09:19)
[2016-09-18] MEDS: FAMOTIDINE 20 MG TAB PEG/G-TUBE SCH (09:19)
[2016-09-18] MEDS: HEPARIN SODIUM,PORCINE 5,000 UNIT/ML 1 ML VIAL SQ SCH ×2 (09:19→21:07)
[2016-09-18] MEDS: lamoTRIgine 100 MG TAB PEG/G-TUBE SCH (09:19)
[2016-09-18] MEDS: DEXTROSE 5% IN WATER 1,000 ML IV SCH (09:20)
[2016-09-18] MEDS: clonazePAM 1 MG TAB PEG/G-TUBE SCH ×3 (09:26→21:07)
[2016-09-18] MEDS: LORazepam 2 MG/ML SYRINGE IV PRN (10:47)
[2016-09-18] MEDS ORDERED: clonazePAM 1 MG TAB PO PRN (11:51)
--- NOTE | 2016-09-18 11:55 | P.PN ---
Subjective Patient appeared more agitated today and is trying to climb out of bed. His movement appeared more intentional with no significant jerking or tremors this morning. He is nonverbal. Objective - Vital Signs Vital signs: Vital Signs Temp 97.2 F L 09/18/16 07:00 Pulse 63 09/18/16 07:39 Resp 16 09/18/16 07:39 BP 123/78 09/18/16 07:00 Pulse Ox 100 09/18/16 07:00 Intake & Output 09/17/16 09/18/16 09/18/16 18:59 06:59 18:59 Intake Total 600 850 Balance 600 850 Weight 68 kg 71 kg Intake: IV 450 Dextrose 5% in Water 1, 400 000 ml @ 50 mls/hr IV . Q20H CHARLIE Rx#:[id number] Valproate Sodium 500 mg 50 In Sodium Chloride 0.9% 50 ml @ 50 mls/hr IVPB Q6HR CHARLIE Rx#:[id number] Tube Feeding 600 400 Other: Voiding Method Diaper Diaper Diaper Incontinent Incontinent Incontinent # Voids 2 - Exam General: The patient is awake and alert, he is trying to climb out of bed. No significant jerking movement noted today. Eye: there is normal conjunctiva bilaterally. Neck: The neck is supple, there is no JVD. Cardiovascular: Normal S1-S2, no S3-S4, no murmurs. Respiratory: Lungs clear to anterior auscultation bilaterally Gastrointestinal: Abdomen is soft, nontender. PEG tube in place Musculoskeletal: There is no pedal edema. Skin: Skin is warm and dry - Labs CBC & Chem 7: 09/18/16 07:42 09/18/16 07:42 Labs: Abnormal Lab Results - Last 24 Hours (Table) 09/17/16 09/18/16 09/18/16 Range/Units 17:46 00:10 06:05 Hgb (13.0-17.5) gm/dL Sodium (137-145) mmol/L Chloride (98-107) mmol/L Carbon Dioxide (22-30) mmol/L BUN (9-20) mg/dL Glucose (74-99) mg/dL POC Glucose (mg/dL) 143 H 113 H 130 H (75-99) mg/dL Valproic Acid ug/mL 09/18/16 09/18/16 Range/Units 07:42 07:42 Hgb 12.7 L (13.0-17.5) gm/dL Sodium 150 H (137-145) mmol/L Chloride 109 H (98-107) mmol/L Carbon Dioxide 32 H (22-30) mmol/L BUN 28 H (9-20) mg/dL Glucose 115 H (74-99) mg/dL POC Glucose (mg/dL) (75-99) mg/dL Valproic Acid 128.6 H* ug/mL Microbiology - Last 24 Hours (Table) 09/16/16 20:51 Blood Culture - Preliminary Blood No Growth after 24 hours 09/16/16 20:55 Blood Culture - Preliminary Blood No Growth after 24 hours Assessment and Plan Plan: 1. [place]'s disease 2. 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 Dysphagia/malnutrition status post PEG tube placement. PEG tube appears slightly dislodged. Surgery consulted for further evaluation 4. Major depressive disorder: Seen and evaluated by psychiatry 5. Moderate to severe malnutrition 6. Hypovolemic hypernatremia: Continue IV fluid hydration. Switch fluids to D5 water. Repeat lab work in the morning. Patient was seen and evaluated by neurology. Computed tomography scan of the brain showed moderate cerebral atrophy with no acute intracranial process. Urinalysis was unremarkable. EEG reading consistent with underlying seizure disorder. Patient was also seen by psychiatry. Risperidone was discontinued. I would start quetiapine 25 mg 3 times a day thereafter and monitor closely. Daily EKGs to monitor for QT prolongation. Patient started on IV Depakote by neurology. Level this morning about therapeutic range. I would discontinue it for now. Neurology will be notified. Xenazine dose increased to 25 mg 3 times a day during this admission. Patient's overall condition is improving. Symptoms appeared more controlled. Monitor for QT prolongation.
[2016-09-18 12:04] LABS: Glucose,Whole Blood 92 mg/dL (75-99)
--- NOTE | 2016-09-18 13:08 | P.PN ---
Subjective This is a 56-year-old gentleman who follows with Dr. Link as his primary care physician. The patient does reside at [facility], [place] secondary to Josephine's disease, dementia and dysphagia. The patient is nonverbal. He has a PEG tube in place for nutrition. On 09/15/2016 at the [facility] the patient had uncontrolled tremors and was sent here for the same. His tetrabenazine dose had recently been increased to 25 mg twice a day. He also usually responds to Klonopin however this time there is no adequate response. Last evening the patient had developed what appeared to be shortness of breath and we are consulted for the same. His chest x-ray revealed no acute pulmonary process. Prior to that he had been maintaining good O2 saturations in the upper 90s on room air. He is currently on 2 L/m per nasal cannula with O2 saturations in the high 90s. No noted coughing or congestion. Minimal leukocytosis at 11.7. He's been afebrile. Sodium has gradually increased currently at 154. The patient is seen again today 09/18/2016 in follow-up. He is more active today. He has no tremors. He is more steady movements of his arms and legs. He is attempting to get out of bed. He is maintaining O2 saturation of 100% on 2 L/m per nasal cannula. His been afebrile. No tachycardia, no tachypnea. Blood cultures reveal no growth to date. Sodium is down to 150. Continues on D5W at 50 MLS per hour. Valproic acid level 128.6. Objective - Vital Signs Vital signs: Vital Signs Temp 97.2 F L 09/18/16 07:00 Pulse 63 09/18/16 07:39 Resp 16 09/18/16 07:39 BP 123/78 09/18/16 07:00 Pulse Ox 100 09/18/16 07:00 Intake & Output 09/17/16 09/18/16 09/18/16 18:59 06:59 18:59 Intake Total 600 850 Balance 600 850 Weight 68 kg 71 kg Intake: IV 450 Dextrose 5% in Water 1, 400 000 ml @ 50 mls/hr IV . Q20H CHARLIE Rx#:[id number] Valproate Sodium 500 mg 50 In Sodium Chloride 0.9% 50 ml @ 50 mls/hr IVPB Q6HR CHARLIE Rx#:[id number] Tube Feeding 600 400 Other: Voiding Method Diaper Diaper Diaper Incontinent Incontinent Incontinent # Voids 2 - Exam GENERAL EXAM: Alert, active, comfortable in no apparent distress. HEAD: Normocephalic. EYES: Normal reaction of pupils, equal size. NOSE: Clear with pink turbinates. THROAT: No erythema or exudates. NECK: No masses, no JVD. CHEST: No chest wall deformity. LUNGS: Equal air entry with no crackles, wheeze, rhonchi or dullness. CVS: S1 and S2 normal with no audible murmurs, regular rhythm. ABDOMEN: PEG tube exit site clean and dry. Soft, bowel sounds present. Extremities: There is no peripheral edema. No clubbing. Peripheral pulses are intact. - Labs CBC & Chem 7: 09/18/16 07:42 09/18/16 07:42 Labs: Abnormal Lab Results - Last 24 Hours (Table) 09/17/16 09/18/16 09/18/16 Range/Units 17:46 00:10 06:05 Hgb (13.0-17.5) gm/dL Sodium (137-145) mmol/L Chloride (98-107) mmol/L Carbon Dioxide (22-30) mmol/L BUN (9-20) mg/dL Glucose (74-99) mg/dL POC Glucose (mg/dL) 143 H 113 H 130 H (75-99) mg/dL Valproic Acid ug/mL 09/18/16 09/18/16 Range/Units 07:42 07:42 Hgb 12.7 L (13.0-17.5) gm/dL Sodium 150 H (137-145) mmol/L Chloride 109 H (98-107) mmol/L Carbon Dioxide 32 H (22-30) mmol/L BUN 28 H (9-20) mg/dL Glucose 115 H (74-99) mg/dL POC Glucose (mg/dL) (75-99) mg/dL Valproic Acid 128.6 H* ug/mL Microbiology - Last 24 Hours (Table) 09/16/16 20:51 Blood Culture - Preliminary Blood No Growth after 24 hours 09/16/16 20:55 Blood Culture - Preliminary Blood No Growth after 24 hours Assessment and Plan Plan: Impression: #1 Rodrigo's disease with uncontrolled tremors despite having tetrabenazine increased and Klonopin. #2 Dyspnea of unclear etiology. Chest x-ray shows no evidence of aspiration. Had been maintaining good O2 saturations in the 90s on room air. Currently at 100% on 2 L. He's been afebrile. Slightly tachycardic, no tachypnea. #3 Dysphagia status post PEG tube insertion. #4 Dementia. #5 residential resident. Plan: The patient was seen and evaluated by Dr. Adler. The patient is stable from the pulmonary standpoint. We will continue to follow make further recommendations based on his clinical status. He should remain on aspiration precautions. The patient is a DO NOT RESUSCITATE/DO NOT INTUBATE CODE STATUS. He may be transferred back to the ECF in the next 24 hours.
--- NOTE | 2016-09-18 15:54 | P.PN ---
Subjective Principal diagnosis: Malfunctioning gastrostomy tube Patient's tube became clogged once again earlier today. Patient has no symptoms. Objective - Vital Signs Vital signs: Vital Signs Temp 97.2 F L 09/18/16 07:00 Pulse 63 09/18/16 07:39 Resp 16 09/18/16 07:39 BP 123/78 09/18/16 07:00 Pulse Ox 100 09/18/16 07:00 Intake & Output 09/17/16 09/18/16 09/18/16 18:59 06:59 18:59 Intake Total 600 850 Balance 600 850 Weight 68 kg 71 kg Intake: IV 450 Dextrose 5% in Water 1, 400 000 ml @ 50 mls/hr IV . Q20H CHARLIE Rx#:[id number] Valproate Sodium 500 mg 50 In Sodium Chloride 0.9% 50 ml @ 50 mls/hr IVPB Q6HR CHARLIE Rx#:[id number] Tube Feeding 600 400 Other: Voiding Method Diaper Diaper Diaper Incontinent Incontinent Incontinent # Voids 2 - Exam Abdomen: Soft, nontender, nondistended - Labs CBC & Chem 7: 09/18/16 07:42 09/18/16 07:42 Labs: Abnormal Lab Results - Last 24 Hours (Table) 09/17/16 09/18/16 09/18/16 Range/Units 17:46 00:10 06:05 Hgb (13.0-17.5) gm/dL Sodium (137-145) mmol/L Chloride (98-107) mmol/L Carbon Dioxide (22-30) mmol/L BUN (9-20) mg/dL Glucose (74-99) mg/dL POC Glucose (mg/dL) 143 H 113 H 130 H (75-99) mg/dL Valproic Acid ug/mL 09/18/16 09/18/16 Range/Units 07:42 07:42 Hgb 12.7 L (13.0-17.5) gm/dL Sodium 150 H (137-145) mmol/L Chloride 109 H (98-107) mmol/L Carbon Dioxide 32 H (22-30) mmol/L BUN 28 H (9-20) mg/dL Glucose 115 H (74-99) mg/dL POC Glucose (mg/dL) (75-99) mg/dL Valproic Acid 128.6 H* ug/mL Microbiology - Last 24 Hours (Table) 09/16/16 20:51 Blood Culture - Preliminary Blood No Growth after 24 hours 09/16/16 20:55 Blood Culture - Preliminary Blood No Growth after 24 hours Assessment and Plan (1) PEG tube malfunction Narrative/Plan: We'll take the patient to endoscopy tomorrow for PEG tube replacement. Status: Acute
[2016-09-18 17:20] LABS: Glucose,Whole Blood 84 mg/dL (75-99)
[2016-09-18 21:01] LABS: Glucose,Whole Blood 82 mg/dL (75-99)
[2016-09-18] MEDS: QUEtiapine 25 MG TAB PO SCH (21:07)
[2016-09-19 01:09] LABS: Glucose,Whole Blood 80 mg/dL (75-99)
[2016-09-19] MEDS: LORazepam 2 MG/ML SYRINGE IV PRN (03:55)
[2016-09-19] MEDS: DEXTROSE 5% IN WATER 1,000 ML IV SCH (05:28)
[2016-09-19] MEDS: BACLOFEN 10 MG TAB PEG/G-TUBE SCH ×3 (05:30→16:45)
[2016-09-19 06:34] LABS: Glucose,Whole Blood 88 mg/dL (75-99)
[2016-09-19 06:43] LABS: Basophils # (A) 0.1 k/uL (0-0.2); Basophils % (A) 0 %; CH 27.3; CHCM 31.4; Eosinophils # (A) 0.1 k/uL (0-0.7); Eosinophils % (A) 1 %; HCT 40.1 % (39.0-53.0); HDW 2.37; HGB 12.6 gm/dL (13.0-17.5); Hypochromasia Slight; Luc % (Auto) 1; Lymphocytes # (A) 1.8 k/uL (1.0-4.8); Lymphocytes % (A) 11 %; MCH 27.5 pg (25.0-35.0); MCHC 31.5 g/dL (31.0-37.0); MCV 87.5 fL (80.0-100.0); Monocytes # (A) 0.5 k/uL (0-1.0); Monocytes % (A) 3 %; Neutrophils # (A) 13.9 k/uL (1.3-7.7); Neutrophils % (A) 84 %; RBC 4.59 m/uL (4.30-5.90); RDW 12.6 % (11.5-15.5); WBC 16.5 k/uL (3.8-10.6); WBC (Perox) 17.55
[2016-09-19 07:00] LABS: ALT 33 U/L (21-72); AST 43 U/L (17-59); Alkaline Phosphatase 86 U/L (38-126); Anion Gap 11 mmol/L; Blood Urea Nitrogen 22 mg/dL (9-20); Calcium 9.5 mg/dL (8.4-10.2); Carbon Dioxide 28 mmol/L (22-30); Chloride 107 mmol/L (98-107); Glucose 81 mg/dL (74-99); Magnesium 2.1 mg/dL (1.6-2.3); Non-African American GFR(MDRD) >60 (>60 ml/min/1.73 sqM); Sodium 146 mmol/L (137-145); Total Bilirubin 0.8 mg/dL (0.2-1.3); Total Protein 7.5 g/dL (6.3-8.2)
[2016-09-19] MEDS: VALPROATE SODIUM 500 MG in SODIUM CHLORIDE 0.9% 50 ML IVPB SCH ×3 (09:30→23:10)
--- NOTE | 2016-09-19 10:55 | P.PN ---
Progress Note - Text CC: " [ Pt nonverbal] " History of Present Illness: [ Patient with [place]'s disease, dementia lying in bed, nonverbal. Patient made more eye contact today than the first visit. No significant change.] Labs: [ ] Mental Status Examination: Patient alert lying in bed, unable to assess his MSE due to his nonverbal status. Assessment: [ Dementia, probable psychosis.] Plan: Patient has tolerated quetiapine 25 mg 3 times a day. If no other behavioral problems present, he can remain on Seroquel 25 mg 3 times a day. If he has behavioral problems he could increase Seroquel and add a bedtime dose of 50 mg. Will continue to follow
[2016-09-19] MEDS ORDERED: IV FLUID CONTINUATION 700 ML IV ONE (11:06)
[2016-09-19] MEDS ORDERED: PROPOFOL 10 MG/ML 20 ML VIAL IV ONE (11:09)
--- NOTE | 2016-09-19 11:25 | P.PCN ---
Date of Procedure: 09/19/16 Procedure(s) Performed: Preoperative Dx: Malnutrition, malfunctioning PEG tube Postoperative Dx: Same Procedure: EGD with gastrostomy tube replacement Anesthesia: Sedation Endoscopist: Dr. Jimenez Specimens: None Endoscopic Procedure: The patient was on the endoscopy table in the left decubitus position. The Olympus gastroscope was inserted into the oropharynx and passed under direct visualization to the region of the third portion of the duodenum. From that point the scope was slowly withdrawn inspecting all surfaces carefully. There were no neoplastic inflammatory or polypoid lesions throughout the duodenum. The pylorus was widely patent. The stomach was carefully inspected. There was prior hold of the PEG tube present. PEG tube was removed without difficulty. A new 20-Spanish Ponsky was replaced without difficulty. The bolster was tightened. The esophagus was inspected and appeared normal. The patient was then taken to the recovery room in stable condition per anesthesia guidelines. Recommendations: Resume tube feeds.
[2016-09-19 12:02] LABS: Glucose,Whole Blood 85 mg/dL (75-99)
[2016-09-19] MEDS: lamoTRIgine 100 MG TAB PEG/G-TUBE SCH (12:34)
[2016-09-19] MEDS: HEPARIN SODIUM,PORCINE 5,000 UNIT/ML 1 ML VIAL SQ SCH ×2 (12:34→23:09)
[2016-09-19] MEDS: FAMOTIDINE 20 MG TAB PEG/G-TUBE SCH (12:34)
[2016-09-19] MEDS: QUEtiapine 25 MG TAB PO SCH ×2 (12:35→23:10)
[2016-09-19] MEDS: VENLAFAXINE HCL ER 75 MG CAP PO SCH (12:35)
[2016-09-19] MEDS: TETRABENAZINE 25 MG PO SCH ×3 (12:35→23:12)
[2016-09-19] MEDS: clonazePAM 1 MG TAB PEG/G-TUBE SCH ×3 (12:43→23:10)
--- NOTE | 2016-09-19 13:02 | P.PN ---
Subjective This is a 56-year-old gentleman who follows with Dr. Link as his primary care physician. The patient does reside at [facility] secondary to Chouteau's disease, dementia and dysphagia. The patient is nonverbal. He has a PEG tube in place for nutrition. On 09/15/2016 at the [facility] the patient had uncontrolled tremors and was sent here for the same. His tetrabenazine dose had recently been increased to 25 mg twice a day. He also usually responds to Klonopin however this time there is no adequate response. Last evening the patient had developed what appeared to be shortness of breath and we are consulted for the same. His chest x-ray revealed no acute pulmonary process. Prior to that he had been maintaining good O2 saturations in the upper 90s on room air. He is currently on 2 L/m per nasal cannula with O2 saturations in the high 90s. No noted coughing or congestion. Minimal leukocytosis at 11.7. He's been afebrile. Sodium has gradually increased currently at 154. The patient is seen again today 09/18/2016 in follow-up. He is more active today. He has no tremors. He is more steady movements of his arms and legs. He is attempting to get out of bed. He is maintaining O2 saturation of 100% on 2 L/m per nasal cannula. His been afebrile. No tachycardia, no tachypnea. Blood cultures reveal no growth to date. Sodium is down to 150. Continues on D5W at 50 MLS per hour. Valproic acid level 128.6. The patient is seen again today 09/19/2016 in follow-up on the regular medical floor. He is currently resting quite comfortably. He did have a PEG tube removal and insertion of a new one earlier this morning with Dr. Jimenez. No evidence of any respiratory distress. He is maintaining good O2 saturations in the upper 90s on room air. He's been afebrile. Objective - Vital Signs Vital signs: Vital Signs Temp 96.7 F L 09/19/16 09:00 Pulse 77 09/19/16 09:34 Resp 20 09/19/16 09:34 BP 115/63 09/19/16 09:00 Pulse Ox 97 09/19/16 09:00 Intake & Output 09/18/16 09/19/1617 18:59 06:59 18:59 Intake Total 10 Balance 10 Weight 71 kg Intake: IV 10 Other: Voiding Method Diaper Diaper Diaper Incontinent Incontinent Incontinent # Voids 2 2 # Bowel Movements 1 - Exam GENERAL EXAM: Alert, active, comfortable in no apparent distress. HEAD: Normocephalic. EYES: Normal reaction of pupils, equal size. NOSE: Clear with pink turbinates. THROAT: No erythema or exudates. NECK: No masses, no JVD. CHEST: No chest wall deformity. LUNGS: Equal air entry with no crackles, wheeze, rhonchi or dullness. CVS: S1 and S2 normal with no audible murmurs, regular rhythm. ABDOMEN: PEG tube exit site clean and dry. Soft, bowel sounds present. Extremities: There is no peripheral edema. No clubbing. Peripheral pulses are intact. - Labs CBC & Chem 7: 09/19/16 06:04 09/19/16 06:04 Labs: Abnormal Lab Results - Last 24 Hours (Table) 09/18/16 09/19/16 09/19/16 Range/Units 17:23 06:04 06:04 WBC 16.5 H (3.8-10.6) k/uL Hgb 12.6 L (13.0-17.5) gm/dL Neutrophils # 13.9 H (1.3-7.7) k/uL Sodium 146 H (137-145) mmol/L BUN 22 H (9-20) mg/dL Valproic Acid 104.9 H* ug/mL Microbiology - Last 24 Hours (Table) 09/16/16 20:51 Blood Culture - Preliminary Blood No Growth after 48 hours 09/16/16 20:55 Blood Culture - Preliminary Blood No Growth after 48 hours Assessment and Plan Plan: Impression: #1 Chouteau's disease with uncontrolled tremors despite having tetrabenazine increased and Klonopin. #2 Dyspnea of unclear etiology. Chest x-ray shows no evidence of aspiration. Had been maintaining good O2 saturations in the 90s on room air. Currently at 100% on 2 L. He's been afebrile. Slightly tachycardic, no tachypnea. #3 Dysphagia status post PEG tube insertion. He did have a PEG tube removed and insertion of a new one today. #4 Dementia. #5 assisted resident. Plan: The patient was seen and evaluated by Dr. Adler. The patient is stable and cleared for discharge from the pulmonary standpoint.
--- NOTE | 2016-09-19 13:26 | P.PN ---
Subjective Patient status post PEG tube replacement. Patient is still drowsy from OR and is resting comfortably. Objective - Vital Signs Vital signs: Vital Signs Temp 96.7 F L 09/19/16 09:00 Pulse 77 09/19/16 09:34 Resp 20 09/19/16 09:34 BP 115/63 09/19/16 09:00 Pulse Ox 97 09/19/16 09:00 Intake & Output 09/18/16 09/19/16 09/19/16 18:59 06:59 18:59 Intake Total 10 Balance 10 Weight 71 kg Intake: IV 10 Other: Voiding Method Diaper Diaper Diaper Incontinent Incontinent Incontinent # Voids 2 2 # Bowel Movements 1 - Exam Head normocephalic Neck supple Lungs clear to auscultation bilaterally no wheezing or crackles Heart regular rate and rhythm S1-S2, no rub or gallop Abdomen is soft nontender nondistended positive bowel sounds no hepatosplenomegaly Extremities no edema Neuro sleeping - Labs CBC & Chem 7: 09/19/16 06:04 09/19/16 06:04 Labs: Abnormal Lab Results - Last 24 Hours (Table) 09/18/16 09/19/16 09/19/16 Range/Units 17:23 06:04 06:04 WBC 16.5 H (3.8-10.6) k/uL Hgb 12.6 L (13.0-17.5) gm/dL Neutrophils # 13.9 H (1.3-7.7) k/uL Sodium 146 H (137-145) mmol/L BUN 22 H (9-20) mg/dL Valproic Acid 104.9 H* ug/mL Microbiology - Last 24 Hours (Table) 09/16/16 20:51 Blood Culture - Preliminary Blood No Growth after 48 hours 09/16/16 20:55 Blood Culture - Preliminary Blood No Growth after 48 hours Assessment and Plan Plan: 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 Xenazine dose increased to 25 mg 3 times a day during this admission. 3. Dysphagia/malnutrition status post PEG tube placement about a year ago. She had malfunctioning PEG tube. Underwent replacement of PEG tube placement today with Dr. Jimenez. Tube feeding instructions per surgical service 4. Major depressive disorder: Seen and evaluated by psychiatry 5. Moderate to severe malnutrition 6. Hypovolemic hypernatremia: Continue IV fluid hydration. Switch fluids to D5 water. Repeat lab work in the morning. Sodium level showing improvement. Continue with current fluids 7. Seizure disorder Depakote added during this admission. Was held yesterday to elevated Depakote level. Depakote level this morning was 65.6 neurology has restarted the Depakote 500 IV 3 times a day Patient was seen and evaluated by neurology. Computed tomography scan of the brain showed moderate cerebral atrophy with no acute intracranial process. Urinalysis was unremarkable. EEG reading consistent with underlying seizure disorder. Patient was also seen by psychiatry. Risperidone was discontinued. I would start quetiapine 25 mg 3 times a day thereafter and monitor closely. Daily EKGs to monitor for QT prolongation. Patient started on IV Depakote by neurology. Level this morning about therapeutic range. I would discontinue it for now. Neurology will be notified. Patient's overall condition is improving. Symptoms appeared more controlled. Monitor for QT prolongation. Awaiting tube feedings to be restarted and surgeries okay to place medications through PEG tube When patient is stable for discharge she'll be discharged back to [facility] I performed an examination of the patient and discussed their management with the physician Cash Crop Farmer. I have reviewed the Physician Cash Crop Farmer's notes and agree with the documented findings and plan of care
[2016-09-19] MEDS: ATIVAN TOPICAL SCH ×3 (14:30→14:33)
[2016-09-19 17:36] LABS: Glucose,Whole Blood 102 mg/dL (75-99)
--- NOTE | 2016-09-19 17:52 | P.PN ---
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 He was admitted to the hospital with worsening of tremors. The patient has been on Lamictal and his Lamictal level was therapeutic at 2.8. He had an EEG which revealed some sharp waves. Depakote was added to his regimen for seizure control. The patient has had less tremors and jerking after Depakote was initiated. His Depakote level was initially high and now is come down to a therapeutic range of 65. Patient continues to be nonverbal. Objective - Vital Signs Vital signs: Vital Signs Temp 96.8 F L 09/19/16 15:00 Pulse 77 09/19/16 15:00 Resp 20 09/19/16 16:00 BP 113/78 09/19/16 15:00 Pulse Ox 99 09/19/16 15:00 Intake & Output 09/18/16 09/19/16 09/19/16 18:59 06:59 18:59 Intake Total 210 Balance 210 Weight 71 kg Intake: IV 10 Tube Feeding 200 Other: Voiding Method Diaper Diaper Diaper Incontinent Incontinent Incontinent # Voids 2 2 # Bowel Movements 1 - Constitutional General appearance: Present: disheveled - Respiratory Respiratory: bilateral: CTA - Cardiovascular Rhythm: regular - Neurologic Neurologic Comment(s): Neurologic examination he was awake he did not focus he did not follow commands he tried to sit up he was nonverbal Cranial nerve examination there was no obvious facial asymmetry there was some grimacing and grunting Coordination and gait could not be checked Motor examination revealed diffuse increased tone. - Labs CBC & Chem 7: 09/19/16 06:04 09/19/16 06:04 Labs: Abnormal Lab Results - Last 24 Hours (Table) 09/18/16 09/19/16 09/19/16 Range/Units 17:23 06:04 06:04 WBC 16.5 H (3.8-10.6) k/uL Hgb 12.6 L (13.0-17.5) gm/dL Neutrophils # 13.9 H (1.3-7.7) k/uL Sodium 146 H (137-145) mmol/L BUN 22 H (9-20) mg/dL POC Glucose (mg/dL) (75-99) mg/dL Valproic Acid 104.9 H* ug/mL 09/19/16 Range/Units 17:30 WBC (3.8-10.6) k/uL Hgb (13.0-17.5) gm/dL Neutrophils # (1.3-7.7) k/uL Sodium (137-145) mmol/L BUN (9-20) mg/dL POC Glucose (mg/dL) 102 H (75-99) mg/dL Valproic Acid ug/mL Microbiology - Last 24 Hours (Table) 09/16/16 20:51 Blood Culture - Preliminary Blood No Growth after 48 hours 09/16/16 20:55 Blood Culture - Preliminary Blood No Growth after 48 hours Assessment and Plan (1) Templeton's disease Status: Chronic Code(s): G10 - KARYN'S DISEASE (2) 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 Mental the hospital with increased tremors. His tremors have reduced after starting Depakote. He also has underlying seizure disorder and should continue on Lamictal and Depakote at the present dose.
[2016-09-20] MEDS: BACLOFEN 10 MG TAB PEG/G-TUBE SCH ×4 (01:30→17:03)
[2016-09-20] MEDS: DEXTROSE 5% IN WATER 1,000 ML IV SCH (05:32)
[2016-09-20 05:54] LABS: Glucose,Whole Blood 110 mg/dL (75-99)
[2016-09-20 07:45] LABS: Basophils # (A) 0.1 k/uL (0-0.2); Basophils % (A) 1 %; CH 27.6; CHCM 31.9; Eosinophils # (A) 0.4 k/uL (0-0.7); Eosinophils % (A) 7 %; HCT 40.9 % (39.0-53.0); HDW 2.35; HGB 12.9 gm/dL (13.0-17.5); Luc # (Auto) 0.16; Luc % (Auto) 3; Lymphocytes % (A) 40 %; MCH 27.5 pg (25.0-35.0); MCHC 31.6 g/dL (31.0-37.0); Monocytes # (A) 0.2 k/uL (0-1.0); Monocytes % (A) 5 %; Neutrophils # (A) 2.3 k/uL (1.3-7.7); Neutrophils % (A) 45 %; RBC 4.69 m/uL (4.30-5.90); RDW 12.7 % (11.5-15.5); WBC 5.1 k/uL (3.8-10.6); WBC (Perox) 5.24
[2016-09-20] MEDS: LACTATED RINGERS 1,000 ML IV SCH ×2 (07:51→07:52)
[2016-09-20 08:01] LABS: ALT 30 U/L (21-72); AST 34 U/L (17-59); Alkaline Phosphatase 79 U/L (38-126); Anion Gap 8 mmol/L; Blood Urea Nitrogen 23 mg/dL (9-20); Calcium 9.1 mg/dL (8.4-10.2); Carbon Dioxide 31 mmol/L (22-30); Chloride 102 mmol/L (98-107); Glucose 83 mg/dL (74-99); Non-African American GFR(MDRD) >60 (>60 ml/min/1.73 sqM); Potassium 4.2 mmol/L (3.5-5.1); Sodium 141 mmol/L (137-145); Total Bilirubin 0.4 mg/dL (0.2-1.3)
[2016-09-20] MEDS: HEPARIN SODIUM,PORCINE 5,000 UNIT/ML 1 ML VIAL SQ SCH ×2 (08:13→22:21)
[2016-09-20] MEDS: VALPROATE SODIUM 500 MG in SODIUM CHLORIDE 0.9% 50 ML IVPB SCH ×3 (08:14→22:22)
[2016-09-20] MEDS: clonazePAM 1 MG TAB PEG/G-TUBE SCH ×3 (08:14→22:21)
[2016-09-20] MEDS: lamoTRIgine 100 MG TAB PEG/G-TUBE SCH (08:14)
[2016-09-20] MEDS: QUEtiapine 25 MG TAB PO SCH ×2 (08:14→22:21)
[2016-09-20] MEDS: TETRABENAZINE 25 MG PO SCH ×3 (08:14→22:22)
[2016-09-20] MEDS: VENLAFAXINE HCL ER 75 MG CAP PO SCH (08:14)
[2016-09-20] MEDS: FAMOTIDINE 20 MG TAB PEG/G-TUBE SCH (08:14)
--- NOTE | 2016-09-20 11:54 | P.PN ---
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 This is a 56-year-old gentleman who follows with Dr. Link as his primary care physician. The patient does reside at [facility] secondary to Clearwater's disease, dementia and dysphagia. The patient is nonverbal. He has a PEG tube in place for nutrition. On 09/15/2016 at the [facility] the patient had uncontrolled tremors and was sent here for the same. His tetrabenazine dose had recently been increased to 25 mg twice a day. He also usually responds to Klonopin however this time there is no adequate response. Last evening the patient had developed what appeared to be shortness of breath and we are consulted for the same. His chest x-ray revealed no acute pulmonary process. Prior to that he had been maintaining good O2 saturations in the upper 90s on room air. He is currently on 2 L/m per nasal cannula with O2 saturations in the high 90s. No noted coughing or congestion. Minimal leukocytosis at 11.7. He's been afebrile. Sodium has gradually increased currently at 154. The patient is seen again today 09/18/2016 in follow-up. He is more active today. He has no tremors. He is more steady movements of his arms and legs. He is attempting to get out of bed. He is maintaining O2 saturation of 100% on 2 L/m per nasal cannula. His been afebrile. No tachycardia, no tachypnea. Blood cultures reveal no growth to date. Sodium is down to 150. Continues on D5W at 50 MLS per hour. Valproic acid level 128.6. The patient is seen again today 09/19/2016 in follow-up on the regular medical floor. He is currently resting quite comfortably. He did have a PEG tube removal and insertion of a new one earlier this morning with Dr. Jimenez. No evidence of any respiratory distress. He is maintaining good O2 saturations in the upper 90s on room air. He's been afebrile. Patient was seen today on 09/20/2016, his PEG tube was changed yesterday, doing relatively well, in no form of distress. Patient is resting comfortable, in no form of respiratory distress. Nonverbal. Objective - Vital Signs Vital signs: Vital Signs Temp 97.5 F L 09/20/16 07:00 Pulse 68 09/20/16 07:00 Resp 20 09/20/16 07:00 BP 114/70 09/20/16 07:00 Pulse Ox 99 09/20/16 07:00 Intake & Output 09/19/16 09/20/16 09/20/16 18:59 06:59 18:59 Intake Total 210 300 Balance 210 300 Weight 71 kg 69.5 kg Intake: IV 10 Tube Feeding 200 300 Other: Voiding Method Diaper Diaper Incontinent Incontinent # Voids 2 # Bowel Movements 1 - Exam GENERAL EXAM: Alert, active, comfortable in no apparent distress. HEAD: Normocephalic. EYES: Normal reaction of pupils, equal size. NOSE: Clear with pink turbinates. THROAT: No erythema or exudates. NECK: No masses, no JVD. CHEST: No chest wall deformity. LUNGS: Equal air entry with no crackles, wheeze, rhonchi or dullness. CVS: S1 and S2 normal with no audible murmurs, regular rhythm. ABDOMEN: PEG tube exit site clean and dry. Soft, bowel sounds present. Extremities: There is no peripheral edema. No clubbing. Peripheral pulses are intact. - Labs CBC & Chem 7: 09/20/16 07:30 09/20/16 07:30 Labs: Abnormal Lab Results - Last 24 Hours (Table) 09/19/16 09/20/16 09/20/16 Range/Units 17:30 05:50 07:30 Hgb 12.9 L (13.0-17.5) gm/dL Carbon Dioxide (22-30) mmol/L BUN (9-20) mg/dL POC Glucose (mg/dL) 102 H 110 H (75-99) mg/dL 09/20/16 Range/Units 07:30 Hgb (13.0-17.5) gm/dL Carbon Dioxide 31 H (22-30) mmol/L BUN 23 H (9-20) mg/dL POC Glucose (mg/dL) (75-99) mg/dL Microbiology - Last 24 Hours (Table) 09/16/16 20:51 Blood Culture - Preliminary Blood No Growth after 72 hours 09/16/16 20:55 Blood Culture - Preliminary Blood No Growth after 72 hours Assessment and Plan Plan: #1 Clearwater's disease with uncontrolled tremors despite having tetrabenazine increased and Klonopin. #2 Dyspnea of unclear etiology. Chest x-ray shows no evidence of aspiration. Had been maintaining good O2 saturations in the 90s on room air. Currently at 100% on 2 L. He's been afebrile. Slightly tachycardic, no tachypnea. #3 Dysphagia status post PEG tube insertion. He did have a PEG tube removed and insertion of a new one today. #4 Dementia. #5 long-term resident. Plan: Continue present treatment plan, consider discharge planning early next week. Back to ECF. Time with Patient: Less than 30
[2016-09-20 12:38] LABS: Glucose,Whole Blood 100 mg/dL (75-99)
[2016-09-20] MEDS: ACETAMINOPHEN TAB 325 MG TAB PEG/G-TUBE PRN (12:53)
[2016-09-20] MEDS: LORazepam 2 MG/ML SYRINGE IV PRN (12:55)
--- NOTE | 2016-09-20 14:41 | P.PN ---
Subjective The patient is seen again today 09/20/2016 in follow-up on the regular medical floor. He is currently resting quite comfortably. He did have a PEG tube removal and insertion of a new one yesterday by Dr. Jimenez. No evidence of any respiratory distress. He is maintaining good O2 saturations in the upper 90s on room air. He's been afebrile. Objective - Vital Signs Vital signs: Vital Signs Temp 97.5 F L 09/20/16 07:00 Pulse 68 09/20/16 08:00 Resp 20 09/20/16 08:00 BP 114/70 09/20/16 07:00 Pulse Ox 99 09/20/16 07:00 Intake & Output 09/19/16 09/20/16 09/20/16 18:59 06:59 18:59 Intake Total 210 300 600 Balance 210 300 600 Weight 71 kg 69.5 kg Intake: IV 10 Tube Feeding 200 300 600 Other: Voiding Method Diaper Diaper Diaper Incontinent Incontinent Incontinent # Voids 2 # Bowel Movements 1 - Exam GENERAL EXAM: Alert, active, comfortable in no apparent distress. HEENT head normocephalic and atraumatic no mouth or throat lesions NECK: No lymphadenopathy, no JVD. CHEST: No chest wall deformity. LUNGS: Equal air entry with no crackles, wheeze, rhonchi or dullness. Cardiac exam reveals regular S1 and S2 no murmurs, regular rhythm. ABDOMEN: PEG tube exit site clean and dry. Soft, bowel sounds present. Extremities: There is no peripheral edema. No clubbing. Peripheral pulses are normal - Labs CBC & Chem 7: 09/20/16 07:30 09/20/16 07:30 Labs: Abnormal Lab Results - Last 24 Hours (Table) 09/19/16 09/20/16 09/20/16 Range/Units 17:30 05:50 07:30 Hgb 12.9 L (13.0-17.5) gm/dL Carbon Dioxide (22-30) mmol/L BUN (9-20) mg/dL POC Glucose (mg/dL) 102 H 110 H (75-99) mg/dL 09/20/16 09/20/16 Range/Units 07:30 12:34 Hgb (13.0-17.5) gm/dL Carbon Dioxide 31 H (22-30) mmol/L BUN 23 H (9-20) mg/dL POC Glucose (mg/dL) 100 H (75-99) mg/dL Microbiology - Last 24 Hours (Table) 09/16/16 20:51 Blood Culture - Preliminary Blood No Growth after 72 hours 09/16/16 20:55 Blood Culture - Preliminary Blood No Growth after 72 hours Assessment and Plan Plan: 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 Xenazine dose increased to 25 mg 3 times a day during this admission. 3. Dysphagia/malnutrition status post PEG tube placement about a year ago. She had malfunctioning PEG tube. Underwent replacement of PEG tube placement today with Dr. Jimenez. Tube feeding instructions per surgical service 4. Major depressive disorder: Seen and evaluated by psychiatry 5. Moderate to severe malnutrition 6. Hypovolemic hypernatremia: Continue IV fluid hydration. Switch fluids to D5 water. Repeat lab work in the morning. Sodium level showing improvement. Continue with current fluids 7. Seizure disorder Depakote added during this admission. Was held yesterday to elevated Depakote level. Depakote level this morning was 65.6 neurology has restarted the Depakote 500 IV 3 times a day Patient was seen and evaluated by neurology. Computed tomography scan of the brain showed moderate cerebral atrophy with no acute intracranial process. Urinalysis was unremarkable. EEG reading consistent with underlying seizure disorder. Patient was also seen by psychiatry. Risperidone was discontinued. I would start quetiapine 25 mg 3 times a day thereafter and monitor closely. Daily EKGs to monitor for QT prolongation. Patient started on IV Depakote by neurology. Level this morning about therapeutic range. I would discontinue it for now. Neurology will be notified. Patient's overall condition is improving. Symptoms appeared more controlled. Monitor for QT prolongation. Awaiting tube feedings to be restarted and surgeries okay to place medications through PEG tube When patient is stable for discharge she'll be discharged back to [facility]
[2016-09-20 17:12] LABS: Glucose,Whole Blood 89 mg/dL (75-99)
[2016-09-21] MEDS: BACLOFEN 10 MG TAB PEG/G-TUBE SCH ×4 (00:22→17:43)
[2016-09-21 01:37] LABS: Glucose,Whole Blood 93 mg/dL (75-99)
[2016-09-21 06:33] LABS: Glucose,Whole Blood 77 mg/dL (75-99)
[2016-09-21] MEDS: DEXTROSE 5% IN WATER 1,000 ML IV SCH ×2 (06:39→17:35)
[2016-09-21 08:14] LABS: Basophils % (A) 1 %; CH 27.8; CHCM 32.1; Eosinophils # (A) 0.3 k/uL (0-0.7); Eosinophils % (A) 6 %; HCT 41.6 % (39.0-53.0); HDW 2.46; HGB 13.4 gm/dL (13.0-17.5); Luc # (Auto) 0.14; Luc % (Auto) 3; Lymphocytes # (A) 1.4 k/uL (1.0-4.8); Lymphocytes % (A) 31 %; MCHC 32.1 g/dL (31.0-37.0); Mean Platelet Volume 7.2; Monocytes # (A) 0.3 k/uL (0-1.0); Monocytes % (A) 6 %; Neutrophils # (A) 2.4 k/uL (1.3-7.7); Neutrophils % (A) 53 %; RBC 4.78 m/uL (4.30-5.90); RDW 12.5 % (11.5-15.5); WBC 4.6 k/uL (3.8-10.6); WBC (Perox) 4.48
[2016-09-21 08:27] LABS: ALT 29 U/L (21-72); AST 29 U/L (17-59); Alkaline Phosphatase 72 U/L (38-126); Anion Gap 9 mmol/L; Blood Urea Nitrogen 19 mg/dL (9-20); Carbon Dioxide 28 mmol/L (22-30); Chloride 104 mmol/L (98-107); Glucose 100 mg/dL (74-99); Magnesium 2.1 mg/dL (1.6-2.3); Non-African American GFR(MDRD) >60 (>60 ml/min/1.73 sqM); Potassium 4.2 mmol/L (3.5-5.1); Sodium 141 mmol/L (137-145); Total Bilirubin 0.4 mg/dL (0.2-1.3); Total Protein 6.5 g/dL (6.3-8.2)
[2016-09-21] MEDS: LACTATED RINGERS 1,000 ML IV SCH (08:34)
[2016-09-21] MEDS: clonazePAM 1 MG TAB PEG/G-TUBE SCH ×3 (08:37→21:08)
[2016-09-21] MEDS: FAMOTIDINE 20 MG TAB PEG/G-TUBE SCH (08:38)
[2016-09-21] MEDS: lamoTRIgine 100 MG TAB PEG/G-TUBE SCH (08:38)
[2016-09-21] MEDS: QUEtiapine 25 MG TAB PO SCH ×2 (08:38→21:09)
[2016-09-21] MEDS: HEPARIN SODIUM,PORCINE 5,000 UNIT/ML 1 ML VIAL SQ SCH ×2 (08:38→21:08)
[2016-09-21] MEDS: TETRABENAZINE 25 MG PO SCH ×3 (08:38→21:09)
[2016-09-21] MEDS: VENLAFAXINE HCL ER 75 MG CAP PO SCH (08:39)
[2016-09-21] MEDS: VALPROATE SODIUM 500 MG in SODIUM CHLORIDE 0.9% 50 ML IVPB SCH ×3 (08:43→21:47)
[2016-09-21 12:13] LABS: Glucose,Whole Blood 88 mg/dL (75-99)
[2016-09-21] MEDS: ACETAMINOPHEN TAB 325 MG TAB PEG/G-TUBE PRN ×2 (12:25→21:08)
[2016-09-21] MEDS: LORazepam 2 MG/ML SYRINGE IV PRN ×2 (12:27→21:51)
--- NOTE | 2016-09-21 17:50 | P.PN ---
Subjective The patient is seen again today 09/20/2016 in follow-up on the regular medical floor. He is currently resting quite comfortably. He did have a PEG tube removal and insertion of a new one yesterday by Dr. Jimenez. No evidence of any respiratory distress. He is maintaining good O2 saturations in the upper 90s on room air. He's been afebrile. Objective - Vital Signs Vital signs: Vital Signs Temp 98 F 09/21/16 15:00 Pulse 71 09/21/16 15:00 Resp 18 09/21/16 15:00 BP 116/72 09/21/16 15:00 Pulse Ox 100 09/21/16 15:00 Intake & Output 09/20/16 09/21/16 09/21/16 18:59 06:59 18:59 Intake Total 800 600 800 Balance 800 600 800 Weight 70.1 kg Intake: Tube Feeding 800 600 800 Other: Voiding Method Diaper Diaper Diaper Incontinent Incontinent Incontinent # Voids 2 2 2 # Bowel Movements 0 0 - Exam GENERAL EXAM: Alert, active, comfortable in no apparent distress. HEENT head normocephalic and atraumatic no mouth or throat lesions NECK: No lymphadenopathy, no JVD. CHEST: No chest wall deformity. LUNGS: Equal air entry with no crackles, wheeze, rhonchi or dullness. Cardiac exam reveals regular S1 and S2 no murmurs, regular rhythm. ABDOMEN: PEG tube exit site clean and dry. Soft, bowel sounds present. Extremities: There is no peripheral edema. No clubbing. 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 Xenazine dose increased to 25 mg 3 times a day during this admission. 3. Dysphagia/malnutrition status post PEG tube placement about a year ago. She had malfunctioning PEG tube. Underwent replacement of PEG tube placement today with Dr. Jimenez. Tube feeding instructions per surgical service 4. Major depressive disorder: Seen and evaluated by psychiatry 5. Moderate to severe malnutrition 6. Hypovolemic hypernatremia: Continue IV fluid hydration. Switch fluids to D5 water. Repeat lab work in the morning. Sodium level showing improvement. Continue with current fluids 7. Seizure disorder Depakote added during this admission. Was held yesterday to elevated Depakote level. Depakote level this morning was 65.6 neurology has restarted the Depakote 500 IV 3 times a day Patient was seen and evaluated by neurology. Computed tomography scan of the brain showed moderate cerebral atrophy with no acute intracranial process. Urinalysis was unremarkable. EEG reading consistent with underlying seizure disorder. Patient was also seen by psychiatry. Risperidone was discontinued. I would start quetiapine 25 mg 3 times a day thereafter and monitor closely. Daily EKGs to monitor for QT prolongation. Patient started on IV Depakote by neurology. Level this morning about therapeutic range. I would discontinue it for now. Neurology will be notified. Patient's overall condition is improving. Symptoms appeared more controlled. Monitor for QT prolongation. Awaiting tube feedings to be restarted and surgeries okay to place medications through PEG tube When patient is stable for discharge he'll be discharged back to [facility] possible discharge to [facility] tomorrow
[2016-09-21 18:27] LABS: Glucose,Whole Blood 86 mg/dL (75-99)
[2016-09-22] MEDS: BACLOFEN 10 MG TAB PEG/G-TUBE SCH ×4 (00:12→18:07)
[2016-09-22 00:50] LABS: Glucose,Whole Blood 85 mg/dL (75-99)
[2016-09-22 06:14] LABS: Glucose,Whole Blood 74 mg/dL (75-99)
[2016-09-22] MEDS: lamoTRIgine 100 MG TAB PEG/G-TUBE SCH (08:30)
[2016-09-22] MEDS: QUEtiapine 25 MG TAB PO SCH ×2 (08:30→22:33)
[2016-09-22] MEDS: FAMOTIDINE 20 MG TAB PEG/G-TUBE SCH (08:30)
[2016-09-22] MEDS: HEPARIN SODIUM,PORCINE 5,000 UNIT/ML 1 ML VIAL SQ SCH ×2 (08:30→22:33)
[2016-09-22] MEDS: VENLAFAXINE HCL ER 75 MG CAP PO SCH (08:30)
[2016-09-22] MEDS: clonazePAM 1 MG TAB PEG/G-TUBE SCH ×3 (08:30→22:34)
[2016-09-22] MEDS: TETRABENAZINE 25 MG PO SCH ×3 (08:31→22:34)
[2016-09-22] MEDS: LACTATED RINGERS 1,000 ML IV SCH (08:52)
[2016-09-22] MEDS: VALPROATE SODIUM 500 MG in SODIUM CHLORIDE 0.9% 50 ML IVPB SCH (10:27)
[2016-09-22 11:47] LABS: Glucose,Whole Blood 90 mg/dL (75-99)
--- NOTE | 2016-09-22 14:46 | P.PN ---
Subjective Principal diagnosis: [place]'s disease Patient is comfortable today. No myoclonus or jerking noted by me today. Objective - Vital Signs Vital signs: Vital Signs Temp 96.7 F L 09/22/16 07:00 Pulse 47 L 09/22/16 07:00 Resp 16 09/22/16 07:15 BP 115/72 09/22/16 07:00 Pulse Ox 100 09/22/16 07:00 Intake & Output 09/21/16 09/22/16 09/22/16 18:59 06:59 18:59 Intake Total 1000 400 200 Balance 1000 400 200 Weight 70.5 kg 70.5 kg Intake: Tube Feeding 1000 400 200 Other: Voiding Method Diaper Diaper Diaper Incontinent Incontinent Incontinent # Voids 3 2 # Bowel Movements 0 0 - Exam General: The patient is awake and alert, he is trying to climb out of bed. No significant jerking movement noted today. Eye: there is normal conjunctiva bilaterally. Neck: The neck is supple, there is no JVD. Cardiovascular: Normal S1-S2, no S3-S4, no murmurs. Respiratory: Lungs clear to anterior auscultation bilaterally Gastrointestinal: Abdomen is soft, nontender. PEG tube in place Musculoskeletal: There is no pedal edema. 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 Dysphagia/malnutrition: PEG tube placed during this admission by general surgery 4. Major depressive disorder: Seen and evaluated by psychiatry 5. Moderate to severe malnutrition 6. Hypovolemic hypernatremia: Improved with IV fluid hydration Patient was seen and evaluated by neurology. Computed tomography scan of the brain showed moderate cerebral atrophy with no acute intracranial process. Urinalysis was unremarkable. EEG reading consistent with underlying seizure disorder. Patient was also seen by psychiatry. Risperidone was discontinued. Started on Seroquel 25 mg 3 times a day Xenazine dose increased to 25 mg 3 times a day during this admission. Patient's overall condition is improving. Symptoms appeared more controlled. Monitor for QT prolongation. Twelve-lead EKG today. Plan to discharge back to [facility] tomorrow.
[2016-09-22 14:58] VITALS: BMI 22.9
[2016-09-22] MEDS: VALPROIC ACID ORAL SOLN 250 MG/5 ML CUP PEG/G-TUBE SCH ×2 (15:15→22:34)
[2016-09-22] MEDS: DEXTROSE 5% IN WATER 1,000 ML IV SCH (16:09)
[2016-09-22 16:51] LABS: Glucose,Whole Blood 86 mg/dL (75-99)
[2016-09-22] MEDS: ACETAMINOPHEN TAB 325 MG TAB PEG/G-TUBE PRN (22:33)
[2016-09-23] MEDS: BACLOFEN 10 MG TAB PEG/G-TUBE SCH ×3 (00:21→12:02)
[2016-09-23 01:19] LABS: Glucose,Whole Blood 102 mg/dL (75-99)
[2016-09-23 06:57] LABS: Glucose,Whole Blood 80 mg/dL (75-99)
[2016-09-23] MEDS: LACTATED RINGERS 1,000 ML IV SCH (07:23)
[2016-09-23 08:42] LABS: Basophils % (A) 1 %; CH 27.5; CHCM 31.3; Eosinophils # (A) 0.4 k/uL (0-0.7); Eosinophils % (A) 8 %; HCT 46.4 % (39.0-53.0); HDW 2.31; HGB 14.4 gm/dL (13.0-17.5); Hypochromasia Slight; Luc # (Auto) 0.15; Luc % (Auto) 3; Lymphocytes # (A) 1.6 k/uL (1.0-4.8); Lymphocytes % (A) 33 %; MCH 27.5 pg (25.0-35.0); MCHC 31.1 g/dL (31.0-37.0); MCV 88.4 fL (80.0-100.0); Mean Platelet Volume 7.6; Monocytes # (A) 0.3 k/uL (0-1.0); Monocytes % (A) 6 %; Neutrophils # (A) 2.4 k/uL (1.3-7.7); Neutrophils % (A) 49 %; RBC 5.24 m/uL (4.30-5.90); RDW 12.8 % (11.5-15.5); WBC 4.8 k/uL (3.8-10.6); WBC (Perox) 4.77
[2016-09-23] MEDS: VALPROIC ACID ORAL SOLN 250 MG/5 ML CUP PEG/G-TUBE SCH (08:52)
[2016-09-23] MEDS: clonazePAM 1 MG TAB PEG/G-TUBE SCH (08:52)
[2016-09-23] MEDS: VENLAFAXINE HCL ER 75 MG CAP PO SCH (08:53)
[2016-09-23] MEDS: HEPARIN SODIUM,PORCINE 5,000 UNIT/ML 1 ML VIAL SQ SCH (08:53)
[2016-09-23] MEDS: FAMOTIDINE 20 MG TAB PEG/G-TUBE SCH (08:53)
[2016-09-23] MEDS: QUEtiapine 25 MG TAB PO SCH (08:53)
[2016-09-23] MEDS: lamoTRIgine 100 MG TAB PEG/G-TUBE SCH (08:53)
[2016-09-23] MEDS: TETRABENAZINE 25 MG PO SCH (08:55)
[2016-09-23 09:51] LABS: ALT 40 U/L (21-72); AST 37 U/L (17-59); Alkaline Phosphatase 79 U/L (38-126); Anion Gap 9 mmol/L; Blood Urea Nitrogen 17 mg/dL (9-20); Calcium 9.3 mg/dL (8.4-10.2); Carbon Dioxide 28 mmol/L (22-30); Chloride 104 mmol/L (98-107); Glucose 78 mg/dL (74-99); Non-African American GFR(MDRD) >60 (>60 ml/min/1.73 sqM); Potassium 4.7 mmol/L (3.5-5.1); Sodium 141 mmol/L (137-145); Total Bilirubin 0.3 mg/dL (0.2-1.3); Total Protein 6.9 g/dL (6.3-8.2)
[2016-09-23 11:13] LABS: Glucose,Whole Blood 83 mg/dL (75-99)
[2016-09-23 14:25] VITALS: BP 110/67; PULSE 75; RESP 18; TEMP 97.6
--- NOTE | 2016-09-23 14:30 | P.DS ---
Providers Date of admission: 09/15/16 11:38 Expected date of discharge: 09/23/16 Attending physician: [facility] Consults: 09/15/16 12:38 Consult Physician Routine Consulting Provider: Tonya Gipson Consult Reason/Comments: [place]'s disease Do you want consulting provider notified?: Yes 09/16/16 09:58 Consult Physician Routine Consulting Provider: Jennifer Callahan Consult Reason/Comments: AMS Do you want consulting provider notified?: Yes 09/16/16 19:17 Consult Physician Routine Consulting Provider: Henok Jimenez Consult Reason/Comments: asess peg tube Do you want consulting provider notified?: Yes 09/16/16 19:58 Consult Physician Urgent Consulting Provider: Sharmin Adler Consult Reason/Comments: short of breath Do you want consulting provider notified?: Yes, Notify in am Primary care physician: [facility] Course: 1. [place]terbury's disease 2. [place]'s chorea with poorly controlled symptoms on presentation 3. Dysphagia/malnutrition: PEG tube placed during this admission by general surgery 4. Major depressive disorder: Seen and evaluated by psychiatry 5. Moderate to severe malnutrition 6. Hypovolemic hypernatremia: Improved with IV fluid hydration Patient was seen and evaluated by neurology. Computed tomography scan of the brain showed moderate cerebral atrophy with no acute intracranial process. Urinalysis was unremarkable. EEG reading consistent with underlying seizure disorder. Patient was also seen by psychiatry. Risperidone was discontinued. Started on Seroquel 25 mg 3 times a day Xenazine dose increased to 25 mg 3 times a day during this admission. Patient's overall condition is improving. Symptoms appeared more controlled. Monitor for QT prolongation. Twelve-lead EKG today. Plan to discharge back to [facility] today Plan - Discharge Summary New Discharge Prescriptions: clonazePAM [KlonoPIN] 1 mg PO TID PRN #60 tab PRN Reason: Anxiety clonazePAM [KlonoPIN] 2 mg PEG/G-TUBE TID #90 tablet Discharge Medication List Polyethylene Glycol 3350 [Miralax] 17 gm PEG/G-TUBE HS 12/13/15 [History] lamoTRIgine [LaMICtal Odt] 100 mg PEG/G-TUBE DAILY 12/15/15 [History] Acetaminophen [Tylenol] 650 mg PEG/G-TUBE Q6HR PRN 09/15/16 [History] Bisacodyl [Dulcolax] 10 mg RECTAL DAILY PRN 09/15/16 [History] Famotidine [Pepcid] 20 mg PEG/G-TUBE DAILY 09/15/16 [History] Lactose-Reduced Food [Ensure Plus] 1 can PEG/G-TUBE DAILY PRN 09/15/16 [History] Magnesium Hydroxide [Milk of Magnesia] 2,400 mg PEG/G-TUBE DAILY PRN 09/15/16 [ History] Baclofen [Lioresal] 10 mg PEG/G-TUBE Q8HR PRN #0 09/23/16 [Rx] QUEtiapine [SEROquel] 25 mg PO BID tab 09/23/16 [Rx] Tetrabenazine [Xenazine] 25 mg PEG/G-TUBE TID #0 09/23/16 [Rx] Valproic Acid Oral Soln [Depakene Syrup] 500 mg PEG/G-TUBE TID ml 09/23/16 [Rx] Venlafaxine HCl ER [Effexor XR] 75 mg PO DAILY cap.er.24h 09/23/16 [Rx] clonazePAM [KlonoPIN] 1 mg PO TID PRN #60 tab 09/23/16 [Rx] clonazePAM [KlonoPIN] 2 mg PEG/G-TUBE TID #90 tablet 09/23/16 [Rx] Discharge Disposition: TRANSFER TO SNF/ECF
--- NOTE | 2016-09-23 14:45 | P.CN ---
Psychiatric Consult - . Consult date: 09/23/16 Consult:: 09/23/16 14:42 Patient seen today, lying in bed, quiet no tremors noted. Minimal eye contact, nonverbal. Patient with [place]'s disease, dementia. No evidence of anxiety and depression or psychosis today. Patient is being [facility] today back to his [facility]. Recommend he continue on quetiapine 25 mg 3 times a day when necessary agitation.
== END 2016-09-23 17:05 | DRG 56 ==
LOC: 5MS5E 11:38
PROVIDERS: ADMIT Internal Medicine; ATTEND Internal Medicine
PROC: 0DH63UZ Insertion of Feeding Device into Stomach, Percutaneous Approach (ICD-10-PCS; principal; 2016-09-19 07:30)
PROC: 0D20XUZ Change Feeding Device in Upper Intestinal Tract, External Approach (ICD-10-PCS; principal; 2016-09-19 07:30)
DX: G10 Huntington's disease (principal); E43 Unspecified severe protein-calorie malnutrition; G40.919 Epilepsy, unspecified, intractable, without status epilepticus; R13.10 Dysphagia, unspecified; E87.0 Hyperosmolality and hypernatremia; F02.81 Dementia in other diseases classified elsewhere, unspecified severity, with behavioral disturbance; K94.23 Gastrostomy malfunction; E86.1 Hypovolemia; D72.829 Elevated white blood cell count, unspecified; F32.9 Major depressive disorder, single episode, unspecified; R09.02 Hypoxemia; Y83.3 Surgical operation with formation of external stoma as the cause of abnormal reaction of the patient, or of later complication, without mention of misadventure at the time of the procedure; Z87.891 Personal history of nicotine dependence
CPT/HCPCS: 43246; 70450; 71010; 80053; 80164; 80175; 81001; 83735; 85025; 87040; 93005; 95816

== ENCOUNTER 2017-09-14 15:22 | Emergency (ER) | payer MEDICARE, OTHER ==
--- NOTE | 2017-09-14 15:56 | ED ---
General Adult HPI - General Chief complaint: Abdominal Pain Stated complaint: Poss Bowel Obstruction, G-Tube Issues Time Seen by Provider: 09/14/17 15:43 Source: patient, EMS, RN notes reviewed, old records reviewed Mode of arrival: EMS Limitations: language barrier, physical limitation - History of Present Illness Initial comments: This is a 36-year-old male to the ER for evaluation. They presents for evaluation regards to PEG tube difficulties and abdominal pain. Patient is poor historian unable to give history secondary to nonverbal. History obtained from EMS, patient's chart - Related Data Home Medications Medication Instructions Recorded Confirmed Polyethylene Glycol 3350 [Miralax] 17 gm PEG/G-TUBE HS 12/12/09/14/17 Acetaminophen [Tylenol] 650 mg PEG/G-TUBE Q6HR PRN 09/15/16 09/14/17 Bisacodyl [Dulcolax] 10 mg RECTAL DAILY PRN 09/15/16 09/14/17 Famotidine [Pepcid] 20 mg PEG/G-TUBE DAILY 09/15/16 09/14/17 Magnesium Hydroxide [Milk of 2,400 mg PEG/G-TUBE DAILY PRN 09/15/16 09/14/17 Magnesia] Baclofen [Lioresal] 10 mg PEG/G-TUBE TID@0600,1200,2100 09/14/17 09/14/17 Docusate [Colace] 100 mg PO BID@0800,1700 09/14/17 09/14/17 Jevity 1.5 Jonas Liquid 237 ml PEG/G-TUBE QID@08,09,,09/14/17 09/14/17 LORazepam [Ativan] 2 mg PO DAILY 09/14/17 09/14/17 Na Phos,M-B/Na Phos,Di-Ba [Fleet 133 ml RECTAL ONCE PRN 09/14/17 09/14/17 Adult] QUEtiapine [SEROquel] 25 mg PO BID@0800,1700 09/14/17 09/14/17 Sodium Chloride [Crenshaw] 2 spray EA NOSTRIL Q4H PRN 09/14/17 09/14/17 Tetrabenazine [Xenazine] 25 mg PEG/G-TUBE TID@0600,1200,2000 09/14/17 09/14/17 Valproic Acid Oral Soln [Depakene 750 mg PEG/G-TUBE TID 09/14/17 09/14/17 Syrup] clonazePAM [KlonoPIN] 2 mg PEG/G-TUBE TID@0600,1200,2000 09/14/17 09/14/17 lamoTRIgine [LaMICtal] 100 mg PO DAILY 09/14/17 09/14/17 levETIRAcetam [Keppra] 500 mg PO BID@0800,1700 09/14/17 09/14/17 Previous Rx's Medication Instructions Recorded Venlafaxine HCl ER [Effexor XR] 75 mg PO DAILY cap.er.24h 09/23/16 Allergies Allergy/AdvReac Type Severity Reaction Status Date / Time No Known Allergies Allergy Verified 09/14/17 16:03 Review of Systems ROS Statement: Those systems with pertinent positive or pertinent negative responses have been documented in the HPI. ROS Other: All systems not noted in ROS Statement are negative. Past Medical History Past Medical History: Musculoskeletal Disorder, Neurologic Disorder, Pneumonia Additional Past Medical History / Comment(s): [place],, dysphagia, hypoglycemia, electrolyte abnormalities, deconditioned from Rodrigo's, incontinent urine stool-last BM in past 2 days, severe diaphoresis at times- resolves on its own. History of Any Multi-Drug Resistant Organisms: None Reported Past Surgical History: Unable to Obtain Additional Past Surgical History / Comment(s): 11/2015 Peg tube insertion. Past Anesthesia/Blood Transfusion Reactions: No Reported Reaction Past Psychological History: Depression Smoking Status: Former smoker Past Alcohol Use History: Unable to Obtain Past Drug Use History: Unable to Obtain - Past Family History Father History Unknown: Yes Mother History Unknown: Yes General Exam Limitations: language barrier, physical limitation General appearance: alert, in no apparent distress Head exam: Present: atraumatic, normocephalic, normal inspection Eye exam: Present: normal appearance, PERRL, EOMI. Absent: scleral icterus, conjunctival injection, periorbital swelling ENT exam: Present: normal exam, mucous membranes moist Neck exam: Present: normal inspection. Absent: tenderness, meningismus, lymphadenopathy Respiratory exam: Present: normal lung sounds bilaterally. Absent: respiratory distress, wheezes, rales, rhonchi, stridor Cardiovascular Exam: Present: regular rate, normal rhythm, normal heart sounds. Absent: systolic murmur, diastolic murmur, rubs, gallop, clicks GI/Abdominal exam: Present: soft, distended, normal bowel sounds. Absent: tenderness, guarding, rebound, rigid Extremities exam: Present: normal inspection, full ROM, normal capillary refill. Absent: tenderness, pedal edema, joint swelling, calf tenderness Back exam: Present: normal inspection Neurological exam: Present: alert, oriented X3, CN II-XII intact Psychiatric exam: Present: normal affect, normal mood Skin exam: Present: warm, dry, intact, normal color. Absent: rash Course Vital Signs 09/14/17 09/14/17 09/14/17 15:27 16:29 17:38 Temperature 97.9 F Pulse Rate 100 100 79 Respiratory 20 18 18 Rate Blood Pressure 133/72 151/80 151/80 O2 Sat by Pulse 97 94 L 97 Oximetry 09/14/17 09/14/17 19:02 20:57 Temperature 98.4 F Pulse Rate 81 Respiratory 18 Rate Blood Pressure 141/83 144/87 O2 Sat by Pulse 98 Oximetry Medical Decision Making - Lab Data Result diagrams: 09/14/17 17:01 09/14/17 17:01 Lab Results 09/14/17 09/14/17 09/14/17 Range/Units 17:01 17:01 17:01 WBC 8.6 (3.8-10.6) k/uL RBC 5.40 (4.30-5.90) m/uL Hgb 14.9 (13.0-17.5) gm/dL Hct 45.5 (39.0-53.0) % MCV 84.3 (80.0-100.0) fL MCH 27.6 (25.0-35.0) pg MCHC 32.7 (31.0-37.0) g/dL RDW 13.2 (11.5-15.5) % Plt Count 337 (150-450) k/uL Neutrophils % 59 % Lymphocytes % 27 % Monocytes % 5 % Eosinophils % 6 % Basophils % 1 % Neutrophils # 5.1 (1.3-7.7) k/uL Lymphocytes # 2.3 (1.0-4.8) k/uL Monocytes # 0.5 (0-1.0) k/uL Eosinophils # 0.5 (0-0.7) k/uL Basophils # 0.0 (0-0.2) k/uL PT (9.0-12.0) sec INR (<1.2) APTT (22.0-30.0) sec Sodium 135 L (137-145) mmol/L Potassium 4.0 (3.5-5.1) mmol/L Chloride 93 L (98-107) mmol/L Carbon Dioxide 30 (22-30) mmol/L Anion Gap 12 mmol/L BUN 13 (9-20) mg/dL Creatinine 0.86 (0.66-1.25) mg/dL Est GFR (CKD-EPI)AfAm >90 (>60 ml/min/1.73 sqM) Est GFR (CKD-EPI)NonAf >90 (>60 ml/min/1.73 sqM) Glucose 103 H (74-99) mg/dL Plasma Lactic Acid Manuel (0.7-2.0) mmol/L Calcium 9.7 (8.4-10.2) mg/dL Phosphorus 4.2 (2.5-4.5) mg/dL Magnesium 1.7 (1.6-2.3) mg/dL Total Bilirubin 0.4 (0.2-1.3) mg/dL AST 23 (17-59) U/L ALT 17 L (21-72) U/L Alkaline Phosphatase 76 (38-126) U/L Total Creatine Kinase 115 (55-170) U/L CK-MB (CK-2) 0.7 (0.0-2.4) ng/mL CK-MB (CK-2) Rel Index 0.6 Troponin I <0.012 (0.000-0.034) ng/mL Total Protein 7.6 (6.3-8.2) g/dL Albumin 4.4 (3.5-5.0) g/dL 09/14/17 09/14/17 Range/Units 17:01 17:01 WBC (3.8-10.6) k/uL RBC (4.30-5.90) m/uL Hgb (13.0-17.5) gm/dL Hct (39.0-53.0) % MCV (80.0-100.0) fL MCH (25.0-35.0) pg MCHC (31.0-37.0) g/dL RDW (11.5-15.5) % Plt Count (150-450) k/uL Neutrophils % % Lymphocytes % % Monocytes % % Eosinophils % % Basophils % % Neutrophils # (1.3-7.7) k/uL Lymphocytes # (1.0-4.8) k/uL Monocytes # (0-1.0) k/uL Eosinophils # (0-0.7) k/uL Basophils # (0-0.2) k/uL PT 10.2 (9.0-12.0) sec INR 1.0 (<1.2) APTT 26.6 (22.0-30.0) sec Sodium (137-145) mmol/L Potassium (3.5-5.1) mmol/L Chloride (98-107) mmol/L Carbon Dioxide (22-30) mmol/L Anion Gap mmol/L BUN (9-20) mg/dL Creatinine (0.66-1.25) mg/dL Est GFR (CKD-EPI)AfAm (>60 ml/min/1.73 sqM) Est GFR (CKD-EPI)NonAf (>60 ml/min/1.73 sqM) Glucose (74-99) mg/dL Plasma Lactic Acid Manuel 1.6 (0.7-2.0) mmol/L Calcium (8.4-10.2) mg/dL Phosphorus (2.5-4.5) mg/dL Magnesium (1.6-2.3) mg/dL Total Bilirubin (0.2-1.3) mg/dL AST (17-59) U/L ALT (21-72) U/L Alkaline Phosphatase (38-126) U/L Total Creatine Kinase (55-170) U/L CK-MB (CK-2) (0.0-2.4) ng/mL CK-MB (CK-2) Rel Index Troponin I (0.000-0.034) ng/mL Total Protein (6.3-8.2) g/dL Albumin (3.5-5.0) g/dL Disposition Clinical Impression: Constipation, Pony's disease, PEG tube malfunction, Protein calorie malnutrition Disposition: HOME SELF-CARE Condition: Good Instructions: Constipation (ED) Is patient prescribed a controlled substance at d/c from ED?: No Referrals: Natalio Link MD [Primary Care Provider] - 1-2 days
[2017-09-14] MEDS ORDERED: SODIUM CHLORIDE 0.9% 1,000 ML IV STA ×3 (16:11→18:36)
[2017-09-14] MEDS ORDERED: MORPHINE SULFATE 4 MG/0.8 ML SYRINGE (INJ) IV STA (16:11)
--- NOTE | 2017-09-14 16:23 | XR ---
EXAMINATION TYPE: XR abdomen acute w cxr DATE OF EXAM: 09/14/2017 CLINICAL HISTORY: Abdominal pain and distention. TECHNIQUE: Single frontal view of chest is obtained. Supine and upright views of the abdomen are acq uired. COMPARISON: Chest x-ray September 16, 2016. CT abdomen pelvis December 15, 2015. FINDINGS: There is poor inspiration with left greater than right bibasilar opacity system with infilt rate and/or atelectasis. No large pleural effusion or pneumothorax is seen bilaterally. Cardiac silho uette size appears upper limits of normal. Osseous structures are intact. There are gas prominent small and large bowel loops throughout the abdomen and pelvis redemonstrated with fecal material seen in right-sided colonic and pelvic colonic loops. Scattered pelvic phlebolith s are again seen. There is moderate to severe joint space loss in both hips. No pneumoperitoneum is i dentified. IMPRESSION: 1. Poor inspiration with new left greater than right bibasilar infiltrate and/or atelectasis. 2. Overall nonspecific but favor nonobstructive bowel gas pattern. Likely moderate to severe proximal and distal colonic fecal stasis.
[2017-09-14] MEDS ORDERED: RX INFO: IV CONTRAST WAS GIVEN 1 EACH MISC MISCELLANE PRN (16:34)
[2017-09-14 17:34] LABS: Basophils % (A) 1 %; Eosinophils # (A) 0.5 k/uL (0-0.7); Eosinophils % (A) 6 %; HCT 45.5 % (39.0-53.0); HGB 14.9 gm/dL (13.0-17.5); Lymphocytes # (A) 2.3 k/uL (1.0-4.8); Lymphocytes % (A) 27 %; MCH 27.6 pg (25.0-35.0); MCHC 32.7 g/dL (31.0-37.0); MCV 84.3 fL (80.0-100.0); Mean Platelet Volume 7.7; Monocytes # (A) 0.5 k/uL (0-1.0); Monocytes % (A) 5 %; Neutrophils # (A) 5.1 k/uL (1.3-7.7); Neutrophils % (A) 59 %; Platelet Count 337 k/uL (150-450); RDW 13.2 % (11.5-15.5); WBC 8.6 k/uL (3.8-10.6)
[2017-09-14 17:39] LABS: ALT 17 U/L (21-72); AST 23 U/L (17-59); Albumin 4.4 g/dL (3.5-5.0); Alkaline Phosphatase 76 U/L (38-126); Anion Gap 12 mmol/L; Blood Urea Nitrogen 13 mg/dL (9-20); Calcium 9.7 mg/dL (8.4-10.2); Carbon Dioxide 30 mmol/L (22-30); Chloride 93 mmol/L (98-107); Glucose 103 mg/dL (74-99); Magnesium 1.7 mg/dL (1.6-2.3); Phosphorus 4.2 mg/dL (2.5-4.5); Sodium 135 mmol/L (137-145); Total Bilirubin 0.4 mg/dL (0.2-1.3); Total Protein 7.6 g/dL (6.3-8.2)
[2017-09-14 17:45] LABS: Partial Thromboplastin Time 26.6 sec (22.0-30.0); Prothrombin Time 10.2 sec (9.0-12.0)
[2017-09-14 17:47] LABS: Creatine Kinase 115 U/L (55-170)
[2017-09-14 18:00] LABS: Creatine Kinase MB 0.7 ng/mL (0.0-2.4); Troponin I <0.012 ng/mL (0.000-0.034)
--- NOTE | 2017-09-14 18:21 | CT ---
EXAMINATION TYPE: CT abdomen pelvis w con DATE OF EXAM: 09/14/2017 COMPARISON: CT abdomen pelvis December 15, 2015 HISTORY: Patient has advanced [place]'s disease. Extended care facility is concerned G-tube may dunlap ve become dislodged and patient may have a bowel obstruction. CT DLP: 1550.1 mGycm, Automated Exposure Control for Dose Reduction was Utilized. CONTRAST: CT scan of the abdomen and pelvis is performed with oral and with IV Contrast, patient injected with 100 mL of Isovue 300. FINDINGS: LUNG BASES: Mild bilateral gynecomastia is redemonstrated. Heart size is upper limits of normal. Ther e is new tiny left pleural effusion. There is bibasilar dependent atelectasis and/or Limited consolid ation. LIVER/GB: Contracted gallbladder is seen. PANCREAS: No significant abnormality is seen. SPLEEN: No significant abnormality is seen. ADRENALS: No significant abnormality is seen. KIDNEYS: A few simple appearing cyst lower pole level right kidney are redemonstrated. Multiple pelvi c phleboliths are redemonstrated. BOWEL: PEG tube is stable. Stomach is fairly decompressed. There is no suspicious dilatation of duode nal sweep. There is no suspicious small bowel dilatation. There is fecal filled prominence and dilata tion of the colon diffusely through the rectum. Terminal ileum is decompressed. PROSTATE/SEMINAL VESICLES: No gross abnormality seen. LYMPH NODES: No greater than 1cm abdominal or pelvic lymph nodes are appreciated. OSSEOUS STRUCTURES: There is moderate joint space loss and spurring in both hips. There is facet arth ropathy lower lumbar levels. OTHER: No significant additional abnormality is seen. IMPRESSION: 1. No small bowel obstruction is seen. There is severe diffuse colonic fecal stasis or constipation.
[2017-09-14 22:09] VITALS: BP 139/89; PULSE 97; RESP 20; TEMP 98.1
== END 2017-09-14 22:28 | disposition home or self-care (01) ==
LOC: EC 15:22
DX: G10 Huntington's disease (principal); F02.80 Dementia in other diseases classified elsewhere, unspecified severity, without behavioral disturbance, psychotic disturbance, mood disturbance, and anxiety; K94.23 Gastrostomy malfunction; E46 Unspecified protein-calorie malnutrition; K59.00 Constipation, unspecified; Z68.21 Body mass index [BMI] 21.0-21.9, adult; F32.9 Major depressive disorder, single episode, unspecified; Z87.891 Personal history of nicotine dependence; Z79.899 Other long term (current) drug therapy
CPT/HCPCS: 36415; 80053; 82550; 82553; 83605; 83735; 84100; 84484; 85025; 85610; 85730; 74022; 74177; 99285; 96374; 96361 ×5; Q9967; J2270

== ENCOUNTER 2020-09-01 01:24 | Emergency (ER) | payer MEDICARE, OTHER ==
[2020-09-01] MEDS ORDERED: SODIUM CHLORIDE 0.9% 1,000 ML IV STA (01:35)
[2020-09-01] MEDS ORDERED: levETIRAcetam IV 1,000 MG in SALINE 1 100ML.BAG IVPB ONE ×3 (01:45→03:00)
[2020-09-01] MEDS ORDERED: LORazepam 2 MG/ML INJ IV STA ×4 (01:52→02:20)
[2020-09-01 02:04] LABS: Basophils # (A) 0.1 k/uL (0-0.2); Basophils % (A) 1 %; Eosinophils # (A) 0.4 k/uL (0-0.7); Eosinophils % (A) 3 %; HCT 49.6 % (39.0-53.0); HGB 16.2 gm/dL (13.0-17.5); Lymphocytes # (A) 4.8 k/uL (1.0-4.8); Lymphocytes % (A) 32 %; MCH 28.7 pg (25.0-35.0); MCHC 32.6 g/dL (31.0-37.0); MCV 88.1 fL (80.0-100.0); Mean Platelet Volume 10.7; Monocytes % (A) 6 %; Neutrophils # (A) 8.3 k/uL (1.3-7.7); Neutrophils % (A) 56 %; Platelet Count 345 k/uL (150-450); RBC 5.63 m/uL (4.30-5.90); RDW 14.7 % (11.5-15.5); WBC 14.9 k/uL (3.8-10.6)
[2020-09-01 02:10] LABS: Appearance,Urine Clear (Clear); Bilirubin,Urine Negative (Negative); Blood,Urine Small (Negative); Color,Urine Yellow; Glucose,Urine (UA) Negative (Negative); Ketones,Urine Trace (Negative); Leukocyte Esterase,Urine Negative (Negative); Mucus,Urine Few /hpf; Nitrite,Urine Negative (Negative); PH, Urine 6.5 (5.0-8.0); Protein,Urine 1+ (Negative); RBC,Urine 131 /hpf (0-5); Specific Gravity,Urine 1.026 (1.001-1.035); Sperm,Urine Occasional /hpf; Squamous Epithelial Cell,Urine <1 /hpf (0-4); WBC,Urine 2 /hpf (0-5)
[2020-09-01] MEDS ORDERED: VALPROIC ACID ORAL SOLN 250 MG/5 ML CUP PEG/G-TUBE STA (02:47)
[2020-09-01] MEDS ORDERED: PHENYTOIN SODIUM IVPB ONE (03:15)
[2020-09-01] MEDS ORDERED: SODIUM CHLORIDE 0.9% IVPB ONE (03:15)
[2020-09-01] MEDS ORDERED: PHENYTOIN SODIUM INJ 50 MG/ML 2 ML VIAL ONE (03:24)
[2020-09-01] MEDS ORDERED: SODIUM CHLORIDE 0.9% 500 ML BAG ONE (03:24)
[2020-09-01] MEDS ORDERED: PHENYTOIN SODIUM 50 MG/ML IVPB ONE (03:24)
[2020-09-01 03:37] LABS: ALT 21 U/L (4-49); AST 32 U/L (17-59); African American GFR (CKD) >90 (>60 ml/min/1.73 sqM); Albumin 4.3 g/dL (3.5-5.0); Alkaline Phosphatase 68 U/L (38-126); Anion Gap 13 mmol/L; Blood Urea Nitrogen 18 mg/dL (9-20); Calcium 9.6 mg/dL (8.4-10.2); Carbon Dioxide 24 mmol/L (22-30); Chloride 110 mmol/L (98-107); Glucose 104 mg/dL (74-99); Non-African American GFR(CKD) >90 (>60 ml/min/1.73 sqM); Phenytoin (Dilantin) <3.0 ug/mL; Potassium 4.4 mmol/L (3.5-5.1); Sodium 147 mmol/L (137-145); Total Bilirubin 0.5 mg/dL (0.2-1.3); Total Protein 7.5 g/dL (6.3-8.2)
[2020-09-01 04:39] VITALS: BP 123/84; PULSE 93; RESP 18; TEMP 98.7
--- NOTE | 2020-09-01 05:08 | ED ---
Seizure HPI - General Chief Complaint: Seizure Stated Complaint: seizure Time Seen by Provider: 09/01/20 01:27 Source: EMS Mode of arrival: EMS Limitations: physical limitation - History of Present Illness Initial Comments: This patient is a 59-year-old man with history of Rodrigo's disease, transferred here from the [facility]. It is reported that the patient has been having seizure activity there for a number of hours. The half-way reportedly had given midazolam total of 10 mg, before EMS arrival. EMS personnel then gave a total of 10 more milligrams during their transport here. Patient of course not able to give any history. MD Complaint: seizure -: hour(s) Description of Episode: tonic-clonic movement Witnessed: yes - by bystander Trauma: No Seizure History: known seizure disorder Place: home Treatments Prior to Arrival: benzodiazepines - Related Data Home Medications Medication Instructions Recorded Confirmed polyethylene glycoL 3350 [Miralax] 17 gm PEG/G-TUBE HS 12/13/15 09/14/17 Acetaminophen [Tylenol] 650 mg PEG/G-TUBE Q6HR PRN 09/15/16 09/14/17 Famotidine [Pepcid] 20 mg PEG/G-TUBE DAILY 09/15/16 09/14/17 Magnesium Hydroxide [Milk of 2,400 mg PEG/G-TUBE DAILY PRN 09/15/16 09/14/17 Magnesia] bisacodyL [Dulcolax] 10 mg RECTAL DAILY PRN 09/15/16 09/14/17 Baclofen [Lioresal] 10 mg PEG/G-TUBE TID@0600,1200,2100 09/14/17 09/14/17 Docusate [Colace] 100 mg PO BID@0800,1700 09/14/17 09/14/17 Jevity 1.5 Jonas Liquid 237 ml PEG/G-TUBE QID@08,09,12,17 09/14/17 09/14/17 LORazepam [Ativan] 2 mg PO DAILY 09/14/17 09/14/17 Na Phos,M-B/Na Phos,Di-Ba [Fleet 133 ml RECTAL ONCE PRN 09/14/17 09/14/17 Adult] QUEtiapine [SEROquel] 25 mg PO BID@0800,1700 09/14/17 09/14/17 Sodium Chloride [Kaka] 2 spray EA NOSTRIL Q4H PRN 09/14/17 09/14/17 Tetrabenazine [Xenazine] 25 mg PEG/G-TUBE TID@0600,1200,199909/14/17 09/14/17 Valproic Acid Oral Soln [Depakene 750 mg PEG/G-TUBE TID 09/14/17 09/14/17 Syrup] clonazePAM [KlonoPIN] 2 mg PEG/G-TUBE TID@0600,1200,199909/14/17 09/14/17 lamoTRIgine [LaMICtal] 100 mg PO DAILY 09/14/17 09/14/17 levETIRAcetam [Keppra] 500 mg PO BID@0800,1700 09/14/17 09/14/17 Previous Rx's Medication Instructions Recorded Venlafaxine HCl ER [Effexor XR] 75 mg PO DAILY cap.er.24h 09/23/16 Allergies Allergy/AdvReac Type Severity Reaction Status Date / Time No Known Allergies Allergy Verified 09/01/20 01:46 Review of Systems ROS Statement: Those systems with pertinent positive or pertinent negative responses have been documented in the HPI. ROS Other: All systems not noted in ROS Statement are negative. Limitations: ROS unobtainable due to patients medical condition Past Medical History Past Medical History: Musculoskeletal Disorder, Neurologic Disorder, Pneumonia Additional Past Medical History / Comment(s): [place],, dysphagia, hypoglycemia, electrolyte abnormalities, deconditioned from [place]'s, incontinent urine stool-last BM in past 2 days, severe diaphoresis at times- resolves on its own. History of Any Multi-Drug Resistant Organisms: None Reported Past Surgical History: Unable to Obtain Additional Past Surgical History / Comment(s): 11/2015 Peg tube insertion. Past Anesthesia/Blood Transfusion Reactions: No Reported Reaction Past Psychological History: Depression Past Alcohol Use History: Unable to Obtain Past Drug Use History: Unable to Obtain - Past Family History Father History Unknown: Yes Mother History Unknown: Yes General Exam Limitations: no limitations General appearance: other (Patient is 59-year-old man having active seizure on arrival) Head exam: Present: atraumatic, normocephalic Eye exam: Present: normal appearance. Absent: scleral icterus, conjunctival inj ection, periorbital swelling, periorbital tenderness ENT exam: Present: mucous membranes moist Neck exam: Present: normal inspection. Absent: tenderness, meningismus Respiratory exam: Present: rhonchi, other (No evidence of trauma to the chest wall). Absent: respiratory distress, wheezes, rales, stridor Cardiovascular Exam: Present: normal rhythm, tachycardia (Rate approximately 140s on arrival), systolic murmur. Absent: diastolic murmur, rubs, gallop GI/Abdominal exam: Present: soft, other (PEG tube present). Absent: distended, tenderness, guarding, rebound, rigid, mass, pulsatile mass exam: Present: other (Melchor catheter present) Extremities exam: Present: other (Flexion contractures upper extremities. Ext ension contractures lower extremities. There is an EMS IV line left ankle.). Absent: pedal edema Back exam: Present: normal inspection, other (No evidence of trauma). Absent: vertebral tenderness Neurological exam: Present: other (Patient is actively seizing and not able to cooperate with neurologic exam.) Skin exam: Present: intact, diaphoretic. Absent: rash, cyanosis, erythema, urticaria, vesicles, petechiae, pallor, mottled, abrasion Course Vital Signs 09/01/20 09/01/20 09/01/20 01:27 01:52 02:01 Temperature 99.2 F Pulse Rate 142 H 138 H Respiratory 20 30 H Rate Blood Pressure 89/76 140/92 O2 Sat by Pulse 98 92 L Oximetry 09/01/20 09/01/20 09/01/20 02:31 03:00 03:33 Temperature Pulse Rate 137 H 132 H 134 H Respiratory 26 H 26 H 26 H Rate Blood Pressure 159/110 138/98 118/80 O2 Sat by Pulse 97 96 Oximetry 09/01/20 04:50 Temperature 98.7 F Pulse Rate 93 Respiratory 18 Rate Blood Pressure 123/84 O2 Sat by Pulse 97 Oximetry - Reevaluation(s) Reevaluation #1: 09/01/20 05:08 Discussion with family member reveals that patient does have sweating episodes at times they were informed that there may be some autonomic dysregulation due to the [place]'s Medical Decision Making - Medical Decision Making Patient's 59-year-old man with holding since disease transferred here from half-way for evaluation for status epilepticus. Patient is given additional benzodiazepine, he had 2 mg Ativan which was administered 5 times for total of 10 mg. Patient continued to have seizure activity and is given Keppra 1 g IV 3 doses. Cases concurrently discussed with neurology, and they state that for patient in status epilepticus as we do not have 24 hour ECG transfer should be arranged. Additional medications per neurology service guidance. Case is discussed with family member at bedside and they request to go to nearest facility, I listed a number of them and they have chosen [facility]. Patient given Depakote 2 g through PEG tube. Case is discussed with transfer team, and then with Dr. Sesay at [facility] except transfer. Dilantin loading dose through IV started. Patient seizure activity has stopped. I reassessed the patient and he does continue to have gag reflex. Further discussion with family reveals that they are considering changed to hospice status, but they require more family input so will have meeting tomorrow. - Lab Data Result diagrams: 09/01/20 01:44 09/01/20 03:02 Lab Results 09/01/20 09/01/20 09/01/20 Range/Units 01:44 01:44 01:52 WBC 14.9 H (3.8-10.6) k/uL RBC 5.63 (4.30-5.90) m/uL Hgb 16.2 (13.0-17.5) gm/dL Hct 49.6 (39.0-53.0) % MCV 88.1 (80.0-100.0) fL MCH 28.7 (25.0-35.0) pg MCHC 32.6 (31.0-37.0) g/dL RDW 14.7 (11.5-15.5) % Plt Count 345 (150-450) k/uL MPV 10.7 Neutrophils % 56 % Lymphocytes % 32 % Monocytes % 6 % Eosinophils % 3 % Basophils % 1 % Neutrophils # 8.3 H (1.3-7.7) k/uL Lymphocytes # 4.8 (1.0-4.8) k/uL Monocytes # 1.0 (0-1.0) k/uL Eosinophils # 0.4 (0-0.7) k/uL Basophils # 0.1 (0-0.2) k/uL Sodium (137-145) mmol/L Potassium (3.5-5.1) mmol/L Chloride (98-107) mmol/L Carbon Dioxide (22-30) mmol/L Anion Gap mmol/L BUN (9-20) mg/dL Creatinine (0.66-1.25) mg/dL Est GFR (CKD-EPI)AfAm (>60 ml/min/1.73 sqM) Est GFR (CKD-EPI)NonAf (>60 ml/min/1.73 sqM) Glucose (74-99) mg/dL Lactic Ac Sepsis Rflx Plasma Lactic Acid Manuel 4.6 H* (0.7-2.0) mmol/L Calcium (8.4-10.2) mg/dL Total Bilirubin (0.2-1.3) mg/dL AST (17-59) U/L ALT (4-49) U/L Alkaline Phosphatase (38-126) U/L CK-MB (CK-2) (0.0-2.4) ng/mL Total Protein (6.3-8.2) g/dL Albumin (3.5-5.0) g/dL Urine Color Yellow Urine Appearance Clear (Clear) Urine pH 6.5 (5.0-8.0) Ur Specific [place] 1.026 (1.001-1.035) Urine Protein 1+ H (Negative) Urine Glucose (UA) Negative (Negative) Urine Ketones Trace H (Negative) Urine Blood Small H (Negative) Urine Nitrite Negative (Negative) Urine Bilirubin Negative (Negative) Urine Urobilinogen 3.0 (<2.0) mg/dL Ur Leukocyte Esterase Negative (Negative) Urine RBC 131 H (0-5) /hpf Urine WBC 2 (0-5) /hpf Ur Squamous Epith Cells <1 (0-4) /hpf Urine Mucus Few H (None) /hpf Urine Sperm Occasional H (None) /hpf Phenytoin ug/mL Coronavirus (PCR) (Not Detectd) 09/01/20 09/01/20 09/01/20 Range/Units 02:29 03:02 03:02 WBC (3.8-10.6) k/uL RBC (4.30-5.90) m/uL Hgb (13.0-17.5) gm/dL Hct (39.0-53.0) % MCV (80.0-100.0) fL MCH (25.0-35.0) pg MCHC (31.0-37.0) g/dL RDW (11.5-15.5) % Plt Count (150-450) k/uL MPV Neutrophils % % Lymphocytes % % Monocytes % % Eosinophils % % Basophils % % Neutrophils # (1.3-7.7) k/uL Lymphocytes # (1.0-4.8) k/uL Monocytes # (0-1.0) k/uL Eosinophils # (0-0.7) k/uL Basophils # (0-0.2) k/uL Sodium 147 H (137-145) mmol/L Potassium 4.4 (3.5-5.1) mmol/L Chloride 110 H (98-107) mmol/L Carbon Dioxide 24 (22-30) mmol/L Anion Gap 13 mmol/L BUN 18 (9-20) mg/dL Creatinine 0.66 (0.66-1.25) mg/dL Est GFR (CKD-EPI)AfAm >90 (>60 ml/min/1.73 sqM) Est GFR (CKD-EPI)NonAf >90 (>60 ml/min/1.73 sqM) Glucose 104 H (74-99) mg/dL Lactic Ac Sepsis Rflx Plasma Lactic Acid Manuel (0.7-2.0) mmol/L Calcium 9.6 (8.4-10.2) mg/dL Total Bilirubin 0.5 (0.2-1.3) mg/dL AST 32 (17-59) U/L ALT 21 (4-49) U/L Alkaline Phosphatase 68 (38-126) U/L CK-MB (CK-2) 2.7 H (0.0-2.4) ng/mL Total Protein 7.5 (6.3-8.2) g/dL Albumin 4.3 (3.5-5.0) g/dL Urine Color Urine Appearance (Clear) Urine pH (5.0-8.0) Ur Specific [place] (1.001-1.035) Urine Protein (Negative) Urine Glucose (UA) (Negative) Urine Ketones (Negative) Urine Blood (Negative) Urine Nitrite (Negative) Urine Bilirubin (Negative) Urine Urobilinogen (<2.0) mg/dL Ur Leukocyte Esterase (Negative) Urine RBC (0-5) /hpf Urine WBC (0-5) /hpf Ur Squamous Epith Cells (0-4) /hpf Urine Mucus (None) /hpf Urine Sperm (None) /hpf Phenytoin <3.0 ug/mL Coronavirus (PCR) Not Detected (Not Detectd) 09/01/20 Range/Units 03:13 WBC (3.8-10.6) k/uL RBC (4.30-5.90) m/uL Hgb (13.0-17.5) gm/dL Hct (39.0-53.0) % MCV (80.0-100.0) fL MCH (25.0-35.0) pg MCHC (31.0-37.0) g/dL RDW (11.5-15.5) % Plt Count (150-450) k/uL MPV Neutrophils % % Lymphocytes % % Monocytes % % Eosinophils % % Basophils % % Neutrophils # (1.3-7.7) k/uL Lymphocytes # (1.0-4.8) k/uL Monocytes # (0-1.0) k/uL Eosinophils # (0-0.7) k/uL Basophils # (0-0.2) k/uL Sodium (137-145) mmol/L Potassium (3.5-5.1) mmol/L Chloride (98-107) mmol/L Carbon Dioxide (22-30) mmol/L Anion Gap mmol/L BUN (9-20) mg/dL Creatinine (0.66-1.25) mg/dL Est GFR (CKD-EPI)AfAm (>60 ml/min/1.73 sqM) Est GFR (CKD-EPI)NonAf (>60 ml/min/1.73 sqM) Glucose (74-99) mg/dL Lactic Ac Sepsis Rflx Y Plasma Lactic Acid Manuel (0.7-2.0) mmol/L Calcium (8.4-10.2) mg/dL Total Bilirubin (0.2-1.3) mg/dL AST (17-59) U/L ALT (4-49) U/L Alkaline Phosphatase (38-126) U/L CK-MB (CK-2) (0.0-2.4) ng/mL Total Protein (6.3-8.2) g/dL Albumin (3.5-5.0) g/dL Urine Color Urine Appearance (Clear) Urine pH (5.0-8.0) Ur Specific [place] (1.001-1.035) Urine Protein (Negative) Urine Glucose (UA) (Negative) Urine Ketones (Negative) Urine Blood (Negative) Urine Nitrite (Negative) Urine Bilirubin (Negative) Urine Urobilinogen (<2.0) mg/dL Ur Leukocyte Esterase (Negative) Urine RBC (0-5) /hpf Urine WBC (0-5) /hpf Ur Squamous Epith Cells (0-4) /hpf Urine Mucus (None) /hpf Urine Sperm (None) /hpf Phenytoin ug/mL Coronavirus (PCR) (Not Detectd) - EKG Data -: EKG Interpreted by Wy EKG shows normal: sinus rhythm, axis (rightward axis), intervals (normal), QRS complexes (normal) Rate: tachycardia (Rate approximately 150s) Critical Care Time Critical Care Time: Yes (40 minutes) Disposition Clinical Impression: Status epilepticus, Lactic acidosis Disposition: OTHER INSTITUTION NOT DEFINED Condition: Critical Referrals: Matt Bone MD [Primary Care Provider] - 1-2 days - Out of Hospital Transfer - Req. Specs Out of Hospital Transfer - Requested Specifics: Other Emergency Center
== END 2020-09-01 05:25 | disposition other institution (70) ==
LOC: EC 01:24
DX: G40.901 Epilepsy, unspecified, not intractable, with status epilepticus (principal); E87.2 Acidosis; F32.9 Major depressive disorder, single episode, unspecified
CPT/HCPCS: 36415; 93005; 80053; 80177; 82553; 80185; 83605; 85025; 81001; 87635; 99284; 96365; 96367; 96375; 96376 ×3; 96361; J2060; J1165 ×2; J1953